=== PATIENT | female | born 1975 | race Caucasian/White ===

== ENCOUNTER 2018-07-24 15:59 | Outpatient (REF) | payer MEDICAID, SELFPAY ==
--- NOTE | 2018-07-24 15:10 | PAPFT_PTH ---
PATIENT: Fariba Weeks LOC: [facility] U#:[id number] AGE/SX: 42/F ROOM: RE07/24/[address]: Emily High NP : 1975 BED: DIS: 07/24/2018 SPEC #: [id number] RECD: 07/24/18 18:02 STATUS: LUIS FELIPE PITT #: [id number] JUDD: 07/24/18 15:[address]: Emily High NP DEPT: [facility] Cytology RECD BY: Hanna Warren ENTERED: 07/24/18 18:02 SP TYPE: PAPFT OTHR DR: Latonia Bowie Tissues: 1 - CX/ENDOCX FOR PAP SMEARS Procedures: PAP THIN PREP/UVM Screening HPV DNA PROBE Comments: [id number]
== END 2018-07-24 16:19 ==
LOC: LBN 15:59
PROVIDERS: PCP Registered Nurse; Visit Provider Nurse Practitioner Women's Health
DX: Z12.4 Encounter for screening for malignant neoplasm of cervix (principal); Z11.51 Encounter for screening for human papillomavirus (HPV)
CPT/HCPCS: 88142; 87624

== ENCOUNTER 2019-06-08 09:02 | Outpatient (CLI) | payer OTHER, SELFPAY ==
[2019-06-08 09:25] LABS: HCT 42.4 % (36.0-46.0); HGB 14.2 g/dL (12.0-15.5); Mean Corp. HGB Concentration 33.5 g/dL (32.0-36.0); Mean Corpuscular Hemoglobin 28.9 pg (27.0-33.0); Mean Corpuscular Volume 86.4 fL (80-95); Mean Platelet Volume 9.5 fL (8.0-11.0); Platelet Count 344 x1000/uL (130-400); RBC 4.91 m/cumm (4.00-5.20); RBC Distribution Width 13.9 % (11.7-14.6); White Blood Cell Count 7.42 k/cumm (4.4-10.8)
[2019-06-08 10:37] LABS: ALT 30 U/L (14-59); AST 17 U/L (15-37); Albumin 4.2 g/dL (3.4-5.0); Alkaline Phosphatase 98 U/L (46-116); BUN 11 mg/dL (7-18); Bilirubin, Total 0.3 mg/dL (0.2-1.0); CREATININE 0.95 mg/dL (0.55-1.02); Calcium 9.3 mg/dL (8.5-10.1); Chloride 105 mmol/L (98-107); FREE T4 1.16 ng/dL (0.76-1.46); Glucose 86 mg/dL (74-106); Potassium 4.3 mmol/L (3.5-5.1); Sodium 143 mmol/L (136-145); TSH 0.86 uIU/mL (0.36-3.74); Total Protein 7.3 g/dL (6.4-8.2)
[2019-06-08 10:54] LABS: Calculated LDL 206 mg/dL; Cholesterol 258 mg/dL (<200); HDL Cholesterol 38 mg/dL (40-60); Triglyceride 74 mg/dL (<150)
[2019-06-10 10:56] LABS: Prolactin 8.5 ng/mL (See Table)
== END 2019-06-08 09:22 ==
PROVIDERS: PCP Registered Nurse; Visit Provider Nurse Practitioner Psychiatric/Mental Health
DX: Z51.81 Encounter for therapeutic drug level monitoring (principal)
CPT/HCPCS: 36415; 80053; 80061; 85027; 84146; 84439; 84443

== ENCOUNTER 2020-06-24 03:08 | Outpatient (CLI) | payer OTHER, SELFPAY ==
[2020-06-24 07:25] LABS: HCT 41.8 % (36.0-46.0); HGB 13.7 g/dL (11.2-15.7); MCH 28.6 pg (27.0-33.0); MCHC 32.8 % (32.0-36.0); MCV 87.3 fL (80-95); MPV 10.1 fL (8.0-11.0); Platelet Count 332 10^3/uL (130-400); RBC 4.79 10^6/uL (3.93-5.22); RDW 14.3 % (11.7-14.6); RDW-SD 46.4 fL; WBC 7.33 10^3/uL (4.4-10.8)
[2020-06-24 07:41] LABS: Hemoglobin A1C 5.8 % (<5.7)
[2020-06-24 09:37] LABS: ALT 37 U/L (14-59); AST 24 U/L (15-37); Albumin 4.2 g/dL (3.4-5.0); Alkaline Phosphatase 96 U/L (46-116); BUN 15 mg/dL (7-18); Bilirubin, Total 0.4 mg/dL (0.2-1.0); CREATININE 1.13 mg/dL (0.55-1.02); Calcium 9.2 mg/dL (8.5-10.1); Calculated LDL 175 mg/dL (<100); Chloride 103 mmol/L (98-107); Cholesterol 235 mg/dL (<200); Estimated GFR 52.55 (mL/min/1.73m2); Glucose 103 mg/dL (74-106); HDL Cholesterol 38 mg/dL (40-60); Potassium 4.4 mmol/L (3.5-5.1); Sodium 138 mmol/L (136-145); TSH 1.02 uIU/mL (0.36-3.74); Total Protein 7.3 g/dL (6.4-8.2); Triglyceride 111 mg/dL (<150)
[2020-06-24 09:57] LABS: FREE T4 1.12 ng/dL (0.76-1.46)
== END 2020-06-24 03:28 ==
PROVIDERS: PCP Registered Nurse; Visit Provider Nurse Practitioner Psychiatric/Mental Health
DX: Z51.81 Encounter for therapeutic drug level monitoring (principal)
CPT/HCPCS: 36415; 80053; 80061; 85027; 83036; 84439; 84443

== ENCOUNTER 2021-01-20 15:52 | Outpatient (CLI) | payer OTHER, SELFPAY ==
--- NOTE | 2021-01-20 | DI.RAD_ITS ---
Exam(s) RF BARIUM SWALLOW EXAM: RF BARIUM SWALLOW CLINICAL HISTORY: GLOBUS SENSATION, R09.89, THROAT CLEARING, R68.89, DYSPHAGIA, R13.10 TECHNIQUE: 2D and realtime digital imaging was performed. CONTRAST MATERIAL: Oral barium Oral water soluble contrast was administered. COMPARISON: No exams were available for comparison FINDINGS: Esophagram performed with air contrast technique, standing and recumbent. There is mild disc space narrowing at C5-6 level. There are no large osteophytes. The swallowing mechanism is grossly intact. There is no penetration nor aspiration. No evidence of prominent hypertense upper esophageal sphincter and no evidence of Zenker's diverticulum. No fixed l esions in the esophagus nor abnormal mucosal pattern. GE junction appears unremarkable. No hiatal hernia. No stricture. No evidence of Schatzki ring. Were not able to elicit any significant GE reflux on today's study. IMPRESSION: No significant findings on this esophagram study. RADIATION DOSE DELIVERED: vito Sethi=96.5 mGy
[2021-01-20] MEDS: Simethicone/Sod Bicarb/Cit Ac, 4 gram PACKET 1 PACKET PO (15:28)
[2021-01-20] MEDS: Barium Sulfate 60% W/V 355 ML BTL PO (15:28)
== END 2021-01-20 16:12 ==
PROVIDERS: PCP Registered Nurse; Visit Provider Nurse Practitioner
DX: R09.89 Other specified symptoms and signs involving the circulatory and respiratory systems (principal); R68.89 Other general symptoms and signs; R13.10 Dysphagia, unspecified; R19.4 Change in bowel habit
CPT/HCPCS: 74221; J3490

== ENCOUNTER 2021-02-07 04:21 | Outpatient (CLI) | payer OTHER, SELFPAY ==
[2021-02-07 13:47] LABS: Hemoglobin A1C 5.6 % (<5.7)
[2021-02-07 16:17] LABS: Anion Gap 8.9 mmol/L (3-11); BUN 11 mg/dL (7-18); CO2 27.1 mmol/L (21.0-32.0); CREATININE 0.9 mg/dL (0.55-1.02); Calcium 8.7 mg/dL (8.5-10.1); Chloride 105 mmol/L (98-107); Glucose 76 mg/dL (74-106); Potassium 4.2 mmol/L (3.5-5.1); Sodium 141 mmol/L (136-145)
== END 2021-02-07 04:22 | disposition home or self-care (01) ==
LOC: LBO 04:21
PROVIDERS: Nurse Practitioner; PCP Registered Nurse; Visit Provider Registered Nurse
DX: R73.03 Prediabetes (principal); F33.0 Major depressive disorder, recurrent, mild; E78.5 Hyperlipidemia, unspecified
CPT/HCPCS: 36415; 80048; 83036

== ENCOUNTER 2021-05-24 02:49 | Outpatient (CLI) | payer OTHER, SELFPAY ==
[2021-05-24 23:31] LABS: COVID-19 RT-PCR UVMMC Result Negative (Negative)
== END 2021-05-24 02:50 | disposition home or self-care (01) ==
LOC: LBO 02:49
PROVIDERS: PCP Registered Nurse; Visit Provider Nurse Practitioner Family
DX: Z20.822 Contact with and (suspected) exposure to COVID-19 (principal)
CPT/HCPCS: U0003

== ENCOUNTER 2021-09-05 02:40 | Outpatient (CLI) | payer OTHER, SELFPAY ==
[2021-09-05 07:24] LABS: HCT 38.9 % (36.0-46.0); HGB 12.6 g/dL (11.2-15.7); MCHC 32.4 % (32.0-36.0); MCV 89.4 fL (80-95); MPV 9.7 fL (8.0-11.0); Platelet Count 286 10^3/uL (130-400); RBC 4.35 10^6/uL (3.93-5.22); RDW 13.9 % (11.7-14.6); RDW-SD 45.3 fL; WBC 8.04 10^3/uL (4.4-10.8)
[2021-09-05 07:52] LABS: Hemoglobin A1C 5.8 % (<5.7)
[2021-09-05 08:35] LABS: ALT 35 U/L (14-59); AST 26 U/L (15-37); Alkaline Phosphatase 88 U/L (46-116); Anion Gap 9.8 mmol/L (3-11); BUN 16 mg/dL (7-18); Bilirubin, Total 0.3 mg/dL (0.2-1.0); CO2 25.2 mmol/L (21.0-32.0); Calcium 8.6 mg/dL (8.5-10.1); Chloride 105 mmol/L (98-107); Estimated GFR 59.96 (mL/min/1.73m2); Glucose 110 mg/dL (74-106); Potassium 4.4 mmol/L (3.5-5.1); Sodium 140 mmol/L (136-145); TSH 0.97 uIU/mL (0.36-3.74)
[2021-09-05 08:49] LABS: Calculated LDL 175 mg/dL (<100); Cholesterol 234 mg/dL (<200); HDL Cholesterol 46 mg/dL (40-60); Triglyceride 66 mg/dL (<150)
[2021-09-05 17:48] LABS: T3,Free 4.1 pg/mL (2.8-5.3)
[2021-09-05 18:00] LABS: T3, Total 152 ng/dL (97-169)
[2021-09-07 15:23] LABS: 25-Hydroxy D Total 36 ng/mL; 25-Hydroxy D2 <4.0 ng/mL; 25-Hydroxy D3 36 ng/mL
== END 2021-09-05 02:41 | disposition home or self-care (01) ==
LOC: LBO 02:40
PROVIDERS: PCP Registered Nurse; Visit Provider Nurse Practitioner Psychiatric/Mental Health
DX: F32.9 Major depressive disorder, single episode, unspecified (principal); Z79.899 Other long term (current) drug therapy
CPT/HCPCS: 36415; 80053; 80061; 82306; 85027; 83036; 84443; 84480; 84481

== ENCOUNTER 2022-01-13 14:46 | Outpatient (REF) | payer OTHER, SELFPAY | END 2022-01-13 14:47 | disposition home or self-care (01) | LOC: LBN 14:46 | PROVIDERS: PCP Emergency Medicine; Visit Provider Nurse Practitioner Family | DX: R30.0 Dysuria (principal) | CPT/HCPCS: 87086 ==

== ENCOUNTER 2022-01-16 11:48 | Outpatient (REF) | payer OTHER, SELFPAY ==
[2022-01-17 14:15] LABS: Chlamydia Result Negative (Negative); GC Result Negative (Negative)
== END 2022-01-16 11:49 | disposition home or self-care (01) ==
LOC: LBN 11:48
PROVIDERS: PCP Emergency Medicine; Visit Provider Nurse Practitioner Women's Health
DX: Z11.3 Encounter for screening for infections with a predominantly sexual mode of transmission (principal)
CPT/HCPCS: 87491; 87591

== ENCOUNTER 2022-04-04 03:48 | Outpatient (CLI) | payer OTHER, SELFPAY ==
[2022-04-04 10:56] LABS: Hemoglobin A1C 5.9 % (<5.7)
[2022-04-04 11:27] LABS: Calculated LDL 192 mg/dL (<100); Cholesterol 262 mg/dL (<200); HDL Cholesterol 58 mg/dL (40-60); Triglyceride 62 mg/dL (<150)
== END 2022-04-04 03:49 | disposition home or self-care (01) ==
LOC: LBO 03:48
PROVIDERS: PCP Emergency Medicine; Visit Provider Physician Assistant
DX: R73.03 Prediabetes (principal); E78.5 Hyperlipidemia, unspecified
CPT/HCPCS: 36415; 80061; 83036

== ENCOUNTER 2022-05-19 11:35 | Emergency (ER) | payer OTHER, SELFPAY ==
--- NOTE | 2022-05-19 11:30 | DI.CT_ITS ---
Exam(s) CT ABDOMEN PELVIS W EXAM: CT ABDOMEN PELVIS W CLINICAL HISTORY: b/l flank and abd pain, urinary frequency TECHNIQUE: Imaging Protocol: Axial computed tomography images with coronal and sagittal reformatted images were created and reviewed CONTRAST MATERIAL: Intravenous: Omnipaque 350 Contrast volume:100 mL Oral: No COMPARISON: No exams were available for comparison FINDINGS: ABDOMEN: Lung Bases: Normal where visualized. Liver: Normal density. No measurable mass. Portal, Superior Mesenteric, and Splenic Veins: Unremarkable. Gallbladder and Biliary Tract: No radiodense calculus or dilation. Pancreas: Normal density, no abnormal calcifications or inflammatory process. Spleen: Normal. Adrenals: No masses seen. Kidneys: Normal size, contour and axis. No radiodense stones or obstructive uropathy. There is a tiny hypodensity in the left kidney. It is too small for further characterization. There does appear to be mild enhancement of the wall of the left renal collecting system and mild stranding around the ur eter. Abdominal Aorta: Abdominal portion non-dilated. Atherosclerosis. Bowel: No obstruction or bowel wall thickening. Appendix is unremarkable. Peritoneal Cavity: No ascites, collection or mesenteric inflammatory response. No free air. Lymph Nodes: Within normal limits. Bones: Within normal limits for the patient's age. Soft Tissues: There is a moderate size fat containing umbilical hernia. PELVIS: Bladder: Symmetric distention, no gross wall thickening. Reproductive Organs: There is an IUD which is in good position. Lymph Nodes: Within normal limits. Bones: Within normal limits for the patient's age. IMPRESSION: 1. No evidence of nephrolithiasis or hydronephrosis. 2. Mild wall enhancement of the left ureter with stranding around the ureter. This may represent a r ecently passed stone. An urinary tract infection cannot be excluded. 3. Findings were stat discussed with Dr. Jeronimo at 1:48 p.m. on 05/19/2022. RADIATION DOSE DELIVERED: 1,303.44mGy.cm Total DLP DATA REPOSITORY: All CT scans at this facility are submitted to the National Radiology Data Registry (NRDR) Dose Index Registry (DIR) with the [employer] (ACR). RADIATION OPTIMIZATION: All CT scans at this facility use at least one of these dose optimization te chniques: automated exposure control; mA and/or kV adjustment per patient size (includes targeted exa ms where dose is matched to clinical indication); or iterative reconstruction.
[2022-05-19 11:36] VITALS: BP 165/81; PULSE 113; RESP 16; TEMP 37; O2SAT 100
--- NOTE | 2022-05-19 11:40 | ED.GENADUL_ITS ---
Discharge Plan Disposition Patient Disposition: Home Condition: Stable Discharge Details Clinical Impression: Acute pyelonephritis Primary Care Provider: Albertina Morales ED Provider: Luz Maria Jeronimo Home Meds and New Rx's Prescriptions: New cephalexin 500 mg capsule 500 mg PO BID 10 Days Qty: 20 0RF Continued modafinil 200 mg tablet 200 mg PO DAILY Mirena 20 mcg/24 hours (5 yrs) 52 mg intrauterine device 1 device IY ONCE bupropion HCl [Wellbutrin XL] 300 MG tablet extended release 24 hr 300 mg PO DAILY lamotrigine [Lamictal] 100 MG tablet 100 mg PO DAILY aripiprazole [Abilify] 5 MG tablet 5 mg PO DAILY omeprazole 40 mg capsule,delayed release(DR/EC) 20 mg PO DAILY tolterodine [Detrol LA] 2 mg capsule,extended release 24hr 2 mg PO DAILY Qty: 90 3RF Ozempic 0.25 mg or 0.5 mg(2 mg/1.5 mL) pen injector 1 device SUBCUT QWEEK Discharge Instructions Instructions: Urinary Tract Infection in Women (ED), Kidney Infection (ED) Additional Instructions: Your lab tests and imaging today revealed that you likely have a urinary tract infection that may be progressing into a kidney infection. A prescription for antibiotics has been sent electronically to your pharmacy to take as directed until finished. Drink plenty of fluids and get plenty of rest. Alternate tylenol and motrin as needed and directed for pain. Follow-up with your primary care doctor in 1 week. Return to the emergency department with any worsening or new concerning symptoms. Discharge Data Discharge Physician: Luz Maria Jeronimo Medical Decision Making 1145 -- 46-year-old female presents with urinary frequency, urgency, lower abdominal and bilateral mid back pain for the past 2 days. Heart rate elevated to 113 on arrival. Her blood pressure is moderately hypertensive. She otherwise appears comfortable and nontoxic and is afebrile. Her abdomen is soft and minimally tender across lower quadrants. She has no CVA tenderness. Differential diagnosis includes UTI, pyelonephritis, kidney stone, interstitial cystitis. We will place an IV, bolus IV fluids, screening labs, urinalysis, CT abdomen and pelvis and give a dose of IV Toradol and reassess. 1430 --labs and imaging reviewed. Urinalysis appears likely consistent with UTI. CT imaging notes wall enhancement of the left ureter that may be consistent with a recently passed stone or UTI. History and presentation does not appear consistent likely with stone considering bilateral pain. We will treat with Keflex. She was given 1 dose here, bottle to go and a prescription sent electronically to her pharmacy. She was advised to increase fluids, rest, alternate Tylenol and Motrin. Advised to follow up with the primary care doctor for re-evaluation. Usual and customary return precautions given prior to discharge. Medical Records Medical records reviewed: Yes I reviewed the patient's medical records. Imaging Data Radiologic Study: Radiologist's impression: CT ABDOMEN ? PELVIS W CLINICAL HISTORY: ? b/l flank and abd pain, urinary frequency ? TECHNIQUE:? Imaging Protocol: Axial computed tomography images with coronal and sagittal reformatted images were created and reviewed CONTRAST MATERIAL:? Intravenous: Omnipaque 350 Contrast volume:100 mL Oral: No COMPARISON:? No exams were available for comparison FINDINGS: ABDOMEN: Lung Bases: Normal where visualized. Liver: Normal density. No measurable mass. Portal, Superior Mesenteric, and Splenic Veins: Unremarkable.? Gallbladder and Biliary Tract: No radiodense calculus or dilation. Pancreas: Normal density, no abnormal calcifications or inflammatory process. Spleen: Normal. Adrenals: No masses seen. Kidneys: Normal size, contour and axis. No radiodense stones or obstructive uropathy. There is a tiny hypodensity in the left kidney.? It is too small for further characterization.? There does appear to be mild enhancement of the wall of the left renal collecting system and mild stranding around the ureter. Abdominal Aorta: Abdominal portion non-dilated. Atherosclerosis. Bowel: No obstruction or bowel wall thickening. Appendix is unremarkable. Peritoneal Cavity: No ascites, collection or mesenteric inflammatory response.? No free air. Lymph Nodes: Within normal limits. Bones: Within normal limits for the patient's age.? Soft Tissues: There is a moderate size fat containing umbilical hernia.? PELVIS: Bladder: Symmetric distention, no gross wall thickening. Reproductive Organs: There is an IUD which is in good position.? Lymph Nodes: Within normal limits. Bones: Within normal limits for the patient's age.? IMPRESSION: 1. No evidence of nephrolithiasis or hydronephrosis. 2. Mild wall enhancement of the left ureter with stranding around the ureter.? This may represent a recently passed stone.? An urinary tract infection cannot be excluded.? Lab Data Lab results reviewed: Yes I reviewed the patient's lab results. Labs: 05/19/22 11:43 Urine - Reflex from Ua Urine Culture - Pending Laboratory Tests Range/Units 05/19/22 05/19/22 05/19/22 11:43 12:18 12:18 WBC (4.4-10.8) 10^3/uL 13.23 H RBC (3.93-5.22) 10^6/uL 4.85 Hgb (11.2-15.7) g/dL 14.2 Hct (36.0-46.0) % 41.7 MCV (80-95) fL 86 MCH (27.0-33.0) pg 29.3 MCHC (32.0-36.0) % 34.1 RDW (11.7-14.6) % 13.9 Plt Count (130-400) 10^3/uL 296 MPV (8.0-11.0) fL 9.7 Immature Gran % 0.5 Neutrophils % 70.9 Lymphocytes % 21.2 Monocytes % 5.6 Eosinophils % 1.3 Basophils % 0.5 Nucleated RBC % (0.0-0.3) % 0.0 Absolute Neutrophils (1.2-6.7) 10^3/uL 9.38 H Absolute Lymphocytes (1.2-3.4) 10^3/uL 2.80 Absolute Monocytes (0.1-0.8) 10^3/uL 0.74 Absolute Eosinophils (0.0-0.7) 10^3/uL 0.17 Absolute Basophils (0.0-0.2) 10^3/uL 0.07 Sodium (136-145) mmol/L 137 Potassium (3.5-5.1) mmol/L 3.7 Chloride (98-107) mmol/L 101 Carbon Dioxide (21.0-32.0) mmol/L 25.3 Anion Gap (3-11) mmol/L 10.7 BUN (7-18) mg/dL 9 Creatinine (0.55-1.02) mg/dL 1.0 Est GFR (CKD-EPI 2020) (mL/min/1.73m2) 70.80 Glucose (74-106) mg/dL 101 Calcium (8.5-10.1) mg/dL 9.6 Total Bilirubin (0.2-1.0) mg/dL 0.3 AST (15-37) U/L 27 ALT (14-59) U/L 31 Alkaline Phosphatase (46-116) U/L 117 H Total Protein (6.4-8.2) g/dL 8.1 Albumin (3.4-5.0) g/dL 4.2 Lipase (73-393) U/L 104 Urine Color (Yellow) Yellow Urine Clarity (Clear) Clear Urine pH (5-8) 6.0 Ur Specific [place] (1.005-1.025) 1.010 Urine Protein (Negative) mg/dL 30 H Urine Ketones (Negative) mg/dL Negative Urine Blood (Negative) Moderate H Urine Nitrite (Negative) Negative Urine Bilirubin (Negative) Negative Urine Urobilinogen (Up TO 0.2) EU/dL 0.2 Ur Leukocyte Esterase (Negative) Moderate H Urine RBC (0-2) HPF 3-5 H Urine WBC (0-5) HPF 10-20 H Ur Epithelial Cells (Negative) HPF Few Urine Crystals (Negative) HPF Negative Urine Bacteria (Negative) HPF Moderate Urine Casts (Negative) LPF Negative Urine Mucus (Negative) Negative Ur Culture Indicated? Yes Urine Glucose (Negative) mg/dL Negative HPI General Mode of arrival: ambulatory . Date/Time Provider Initiated Documentation: 05/19/22 11:39 . Limitations to Documentation: no limitations . Information obtained by: patient . HPI Narrative: Patient is a 46-year-old female with a history of obesity, hyperlipidemia, depression who presents for urinary frequency and urgency, lower abdominal pain and bilateral mid back pain for the past 2 days. Patient states her pain is intermittent and aching without aggravating or alleviating factors. Patient has not taken any medication for pain. She states she has been eating and drinking normally and denies any nausea, vomiting or diarrhea. She denies fever, dysuria, hematuria, vaginal discharge, genital lesions. Related Data Home Medications Medication Instructions Recorded Confirmed bupropion HCl 300 mg 24 hr tablet, 300 mg PO DAILY 08/27/15 05/19/22 extended release (Wellbutrin XL) lamotrigine 100 mg tablet 100 mg PO DAILY 07/06/17 05/19/22 (Lamictal) aripiprazole 5 mg tablet (Abilify) 5 mg PO DAILY 09/17/17 05/19/22 levonorgestrel 20 mcg/24 hours (8 1 device intrauterine ONCE 07/30/19 05/19/22 yrs) 52 mg intrauterine device (Mirena) modafinil 200 mg tablet 200 mg PO DAILY 07/30/19 05/19/22 omeprazole 40 mg capsule,delayed 20 mg PO DAILY 09/21/21 05/19/22 release tolterodine 2 mg capsule,extended 2 mg PO DAILY #90 caps 11/24/21 05/19/22 release 24 hr (Detrol LA) cephalexin 500 mg capsule 500 mg PO BID 10 days #20 caps 05/19/22 semaglutide 0.25 mg or 0.5 mg (2 1 device subcut QWEEK 05/19/22 05/19/22 mg/1.5 mL) subcutaneous pen injector (Ozempic) Previous Rx's Medication Instructions Recorded tolterodine 2 mg capsule,extended 2 mg PO DAILY #90 caps 11/24/21 release 24 hr (Detrol LA) cephalexin 500 mg capsule 500 mg PO BID 10 days #20 caps 05/19/22 Allergies Allergy/AdvReac Type Severity Reaction Status Date / Time No Known Allergies Allergy Verified 05/19/22 11:39 General Stated Complaint: FlankPain MANUELA: 3 Review of Systems All systems reviewed & are unremarkable except as noted in HPI and below Constitutional Constitutional: Reports as per HPI, Denies chills and Denies fever(s) Eyes Eyes: Denies blurry vision ENT Ears, Nose, Mouth, and Throat: Denies dizziness, Denies sore throat and Denies throat swelling Cardiovascular Cardiovascular: Denies chest pain and Denies dyspnea Respiratory Respiratory: Denies cough and Denies dyspnea Gastrointestinal Gastrointestinal: Denies abdominal pain, Denies diarrhea and Denies vomiting Genitourinary Genitourinary: Denies hematuria, Denies dysuria and Reports other (urinary frequency and urgency) Musculoskeletal Musculoskeletal: Denies back pain and Denies numbness Integumentary/Breasts Skin/Breast: Denies lesions and Denies rash Neurologic Neurologic: Denies dizziness, Denies localized weakness and Denies numbness Allergic/Immunologic Allergic/Immunologic: Denies throat swelling PFSH All Active Problems (Updated 05/19/22 @ 14:51 by Luz Maria Jeronimo DO) Acute pyelonephritis (Acute) Dysuria (Acute) Snoring (Acute) Gastroesophageal reflux disease (Chronic) Globus sensation (Acute) OAB (overactive bladder) (Acute) Fatigue (Acute) Depression (Chronic) Anxiety (Chronic) IUD surveillance (Acute 09/24/15) LOT #[id number] Medical History (Updated 05/19/22 @ 14:51 by Luz Maria Jeronimo DO) Chronic tension headache Contusion of chest Hyperlipidemia Insomnia Onset 03/28/2018 Lack of energy Lateral epicondylitis Recurrent major depressive episodes, mild Onset 12/25/2017 Snoring Surgical History (Updated 05/19/22 @ 12:51 by Luz Maria Jeronimo DO) No significant past surgical history Family History Maternal Aunt Breast cancer in female Mother No problems noted. 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 [employer] Pets and animals: Yes Pets and animals: cat(s), dog(s) and other Details: Rabbit Do you feel safe at home: Yes Do you feel safe in your relationship?: Yes Female Reproductive History Menstrual control method: progestin IUCD History History 2 Para 2 Hx # Term Pregnancies Multiple births Hx # Pregnancies Ectopic pregnancies AB induced Hx Number of Living Children AB spontaneous Exam Const General: cooperative, healthy appearing and no acute distress Orientation: alert, awake and oriented x3 HENMT Head: normal to inspection Face and sinus: normal facial exam Eyes General: appearance normal, both eyes and all related structures Pupils: PERRL EOM: EOM intact bilaterally Neck Neck: normal visual inspection and No submandibular swelling Lymphatic: no lymphadenopathy noted Chest Chest: normal inspection of the chest and no tenderness Resp Effort & Inspection: normal respiratory effort and able to speak in complete sentences Auscultation: clear to auscultation bilaterally Cardio Rate: tachycardic Rhythm: regular rhythm GI Inspection: normal to inspection and obesity Palpation: soft, not firm, not rigid and tender (minimal across lower abdomen) Auscultation: hypoactive bowel sounds Back/Spine/Pelvis Back: no CVA tenderness Thoracic/Lumbar Spine: thoracic and lumbar spine normal to inspection Skin General skin exam: no rashes or lesions noted Neuro General: patient alert, patient awake and patient oriented x3 Cognition: normal cognition Speech: speech normal Motor: muscle tone normal throughout Sensory Exam: no sensory deficits noted Extrem General: normal to inspection, full ROM, capillary refill normal, no calf tenderness bilaterally and no edema Psych Appearance: grossly normal Mental Status: mental status grossly normal Speech and Movement: speech and movement normal Affect: normal affect Course Vital Signs Vital signs: Vital Signs Temperature 98.6 F 05/19/22 11:36 Pulse 113 H 05/19/22 11:36 Respiratory Rate 16 05/19/22 11:36 Blood Pressure 165/81 H 05/19/22 11:36 Pulse Oximetry 100 05/19/22 11:36 Temperature 98.6 F 05/19/22 11:36 Temperature Source Skin 05/19/22 11:36 Pulse 113 H 05/19/22 11:36 Respiratory Rate 16 05/19/22 11:36 Respiratory Effort 05/19/22 11:38 Blood Pressure 165/81 H 05/19/22 11:36 Blood Pressure Position Sitting 05/19/22 11:36 Pulse Oximetry 100 05/19/22 11:36 Oxygen Delivery Method Room Air 05/19/22 11:36 Oxygen Flow Rate 0 05/19/22 11:36 Pain Level 2 05/19/22 11:36
[2022-05-19 11:56] LABS: Bilirubin Negative (Negative); Blood Moderate (Negative); Clarity Clear (Clear); Glucose Negative (Negative); Ketones Negative (Negative); Leukocyte Esterase Moderate (Negative); Nitrite Negative (Negative); Urobilinogen 0.2 EU/dL (Up TO 0.2)
[2022-05-19 12:07] LABS: Bacteria Moderate HPF (Negative); C & S Indicated? Yes; Casts Negative LPF (Negative); Crystals Negative HPF (Negative); Epithelial Cells Few HPF (Negative); Mucus Negative (Negative)
[2022-05-19] MEDS: Normal Saline 1,000 ML 1000 ML IV (12:21)
[2022-05-19 12:25] LABS: Abs Immature Grans 0.06 10^3/uL (0.0-0.06); Absolute Basophil Count 0.07 10^3/uL (0.0-0.2); Absolute Eosinophil Count 0.17 10^3/uL (0.0-0.7); Absolute Monocyte Count 0.74 10^3/uL (0.1-0.8); Basophils % 0.5; Eosinophils % 1.3; HCT 41.7 % (36.0-46.0); HGB 14.2 g/dL (11.2-15.7); Immature Grans % 0.5; Lymphocytes % 21.2; MCH 29.3 pg (27.0-33.0); MCHC 34.1 % (32.0-36.0); MCV 86 fL (80-95); MPV 9.7 fL (8.0-11.0); Monocytes % 5.6; Neutrophils % 70.9; Platelet Count 296 10^3/uL (130-400); RBC 4.85 10^6/uL (3.93-5.22); RDW 13.9 % (11.7-14.6); RDW-SD 43.4 fL; WBC 13.23 10^3/uL (4.4-10.8)
[2022-05-19 12:26] LABS: Absolute Neutrophil Count 9.38 10^3/uL (1.2-6.7)
[2022-05-19 12:42] LABS: ALT 31 U/L (14-59); AST 27 U/L (15-37); Albumin 4.2 g/dL (3.4-5.0); Alkaline Phosphatase 117 U/L (46-116); Anion Gap 10.7 mmol/L (3-11); BUN 9 mg/dL (7-18); Bilirubin, Total 0.3 mg/dL (0.2-1.0); CO2 25.3 mmol/L (21.0-32.0); Calcium 9.6 mg/dL (8.5-10.1); Chloride 101 mmol/L (98-107); Glucose 101 mg/dL (74-106); Lipase 104 U/L (73-393); Potassium 3.7 mmol/L (3.5-5.1); Sodium 137 mmol/L (136-145); Total Protein 8.1 g/dL (6.4-8.2)
[2022-05-19] MEDS: Omnipaque 350 MG/ML 100 ML BTL IJ (13:03)
[2022-05-19] MEDS: Normal Saline - Diluent 50 ML VIAL IJ (13:03)
[2022-05-19] MEDS: Ketorolac 30 MG/ML VIAL IVP (13:48)
[2022-05-19] MEDS: Cephalexin 500 MG CAP, 2 CAPS/BTL PO (15:09)
[2022-05-19] MEDS: Cephalexin 500 MG CAP PO (15:09)
--- NOTE | 2022-05-21 08:48 | NUR.NOTE ---
Nursing Note: Accessed patient chart to see if antibiotic was given for urine culture.
== END 2022-05-19 15:19 | disposition home or self-care (01) ==
PROVIDERS: Emergency Provider Physician Assistant; PCP Emergency Medicine
DX: N10 Acute pyelonephritis (principal); R00.0 Tachycardia, unspecified; I10 Essential (primary) hypertension
CPT/HCPCS: 36415; 80053; 81025; 83690; 87077; 96361; 96374; 99285; 74177; 81003; 81015; 85025; 87086; 87186; 99284; J1885; J3490

== ENCOUNTER 2022-07-24 02:38 | Outpatient (CLI) | payer OTHER, SELFPAY ==
[2022-07-24 12:27] LABS: Hemoglobin A1C 5.5 % (<5.7)
[2022-07-24 12:39] LABS: Calculated LDL 165 mg/dL (<100); Cholesterol 230 mg/dL (<200); HDL Cholesterol 45 mg/dL (40-60); Triglyceride 101 mg/dL (<150)
== END 2022-07-24 02:39 | disposition home or self-care (01) ==
LOC: LBO 02:39
PROVIDERS: PCP Emergency Medicine; Visit Provider Physician Assistant
DX: E78.5 Hyperlipidemia, unspecified (principal); R73.03 Prediabetes
CPT/HCPCS: 36415; 80061; 83036

== ENCOUNTER 2022-11-17 02:20 | Outpatient (CLI) | payer OTHER, SELFPAY ==
[2022-11-17 13:14] LABS: Hemoglobin A1C 5.3 % (<5.7)
[2022-11-17 13:36] LABS: Calculated LDL 181 mg/dL (<100); Cholesterol 247 mg/dL (<200); HDL Cholesterol 49 mg/dL (40-60); Triglyceride 88 mg/dL (<150)
== END 2022-11-17 02:21 | disposition home or self-care (01) ==
LOC: LBO 02:21
PROVIDERS: PCP Physician Assistant; Visit Provider Physician Assistant
DX: E78.5 Hyperlipidemia, unspecified (principal); R73.03 Prediabetes
CPT/HCPCS: 36415; 80061; 83036

== ENCOUNTER 2023-03-28 05:28 | Outpatient (CLI) | payer OTHER, SELFPAY ==
[2023-03-28 13:42] LABS: Hemoglobin A1C 5.4 % (<5.7)
[2023-03-28 14:12] LABS: Calculated LDL 162 mg/dL (<100); Cholesterol 237 mg/dL (<200); HDL Cholesterol 60 mg/dL (40-60); Triglyceride 78 mg/dL (<150)
== END 2023-03-28 05:29 | disposition home or self-care (01) ==
LOC: LBO 05:29
PROVIDERS: PCP Physician Assistant; Visit Provider Physician Assistant
DX: E78.5 Hyperlipidemia, unspecified (principal)
CPT/HCPCS: 36415; 80061; 83036

== ENCOUNTER → 2023-05-01 16:21 | Outpatient (CLI) | payer OTHER, SELFPAY ==
--- NOTE | 2023-05-01 | DI.RAD_ITS ---
Exam(s) RF BARIUM SWALLOW EXAM: RF BARIUM SWALLOW CLINICAL HISTORY: GLOBUS SENSATION, R09.A2,? CRICOPHARYNGEAL HYPERTROPHY TECHNIQUE: 2D and realtime digital imaging was performed. CONTRAST MATERIAL: Thick and thin barium and barium tablet were administered. COMPARISON: CR,RF RF BARIUM SWALLOW from 01/20/2021 FINDINGS: The PA and lateral chest films show normal heart size and clear lung herrera. The lateral carbon cleaner view of the neck shows mild degenerative disc changes at C4-5. Esophagus: The patient swallowed barium without difficulty. Noevidence for mucosal erosions. Nofold thickening. No mass is visible. Nostricture. No evidence of cricopharyngeal hypertrophy. Motility: There is a normal primary stripping wave. No tertiary contractions were noted. There is a small sliding hiatal hernia evident only when supine. Mild gastroesophageal reflux was observed during the exam. Stomach and duodenum are grossly normal. IMPRESSION: Small sliding hiatal hernia and mild gastroesophageal reflux. RADIATION DOSE DELIVERED: vito Sethi=17.5 mGy
[2023-05-01] MEDS: Barium Sulfate 98% W/W 140 ML BTL PO (10:55)
[2023-05-01] MEDS: Barium Sulfate 60% W/V 355 ML BTL PO (10:57)
== END ==
PROVIDERS: PCP Physician Assistant; Visit Provider Otolaryngology
DX: K44.9 Diaphragmatic hernia without obstruction or gangrene (principal); K21.9 Gastro-esophageal reflux disease without esophagitis
CPT/HCPCS: 74221; J3490

== ENCOUNTER → 2023-07-04 01:29 | Outpatient (CLI) | payer OTHER, SELFPAY ==
--- NOTE | 2023-07-04 14:30 | ST.MBS_ITS ---
Date of Service Date of service: 07/04/23 Time of Service: 14:30 Modified Barium Swallow Study Findings: Video fluoroscopic Swallowing Evaluation (VFSE) / Modified Barium Swallow Study (MBSS) Speech Language Pathology Report Patient referred for VFSE/MBSS from Dr. Lorenzo ([facility] Otolaryngology) given globus sensation and suspicion for cricopharyngeal pathology. HPI & Patient report of function: Patient is a 47 year old F with persistant globus sensation and throat clearing for several years. Workup and treatment previously has included multiple unremarkable EGD's, unsuccessful PPI trials, and a barium swallow study which Dr Lorenzo reviewed and questioned for slight cricopharyngeal hypertension. In a recent visit, Dr. Lorenzo also noted supraglottic squeeze on phonation indicating possible element of muscle tension. Patient reported complaint this date is feeling as if there is something sitting in her throat that needs to be cleared, frequent urge to throat clear, which does not resolve the sensation. Denies any odynophagia, pain with phonation, sensation of prandial pharyngeal stasis or prandial/post- prandial s/sx aspiration. 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 Appearance of UES during distension c/w CP bar (prominence) but this does not hinder transit of any materials through the pharyngeal-esophageal segment. Question of intermittent incomplete epiglottic inversion but difficult to visualize, and vallecular residue is only trace amount. Laryngeal motility remains strong. No aspiration occurred and only flash shallow penetration of thin liquids into laryngeal vestibule during the swallow without any residue. No notable or persistent stasis observed in the esophagus when surveyed briefly at end of study. A captured image of maximum CP prominence is shown below. Patient appears to be at low risk for potential aspiration PNA and/or pulmonary compromise and low risk for malnutrition, dehydration. Diet modification is not indicated; non-oral nutrition is not indicated. Swallow prognosis is excellent given: Positive prognostic factors: Age, Severity, Cognitive Status Negative prognostic factors: Surgical/anatomical factors RECOMMENDATIONS: Diet Texture Recommendation:? IDDSI LEVEL SOLIDS 7-Regular Solids LIQUIDS 0-Thin Liquids MEDICATIONS Whole with Thin Liquids or Other as tolerated Risk Management Strategies:? Behavioral reflux precautions, including upright position during + 90 mins after meals. Sleep with HOB inclined Consider eating smaller/more frequent meals & snacks to reduce reflux risk. Look up common reflux triggers to avoid/limit (e.g., alliums, caffeine, mint/menthol, acidic foods, chocolate) Increase daily hydration Limit food/drink 2-3 hours before lying down to sleep. PLAN: No further ROOFING APPRENTICE f/u at this time. ROOFING APPRENTICE providing initial results and recommendations especially as relates to reflux management, impact on sensation, etc. Provided education regarding potential ROOFING APPRENTICE role with muscle tension dysphonia, cough suppression techniques, vocal hygeine. If referring provider and patient discuss management options, goals of care and would like to send referral for voice therapy we would be happy to see her. ----- OBJECTIVE Oral-Motor and Peripheral Screen was unremarkable. Videofluoroscopic Swallow Evaluation (VFSE/MBSS) was conducted in the lateral projection by Speech-Language Pathologist, in collaboration with Radiologist, to evaluate oropharyngeal swallow function. Anatomic view under fluoroscopy: PO Barium Contrast Trials Oral barium water-soluble contrast was administered as follows: IDDSI Level 0 Varibar thin liquid (40% w/v) IDDSI Level 2 Varibar nectar thick/mildly thick liquid (40% w/v) (pharyngeal phase not visualized, only esophageal) IDDSI Level 4 Varibar pudding/pureed/extremely thick (40% w/v) IDDSI Level 7 Regular Solid: 1/2 best cracker coated in 3 mL Varibar pudding 13 mm barium tablet taken with Thin Liquids. MBSImP Component Scores: 3 COMPONENT Scale SCORE 1 Lip closure (0-4) 0 Resulted in no labial escape 2 Hold Position (0-3) 0 Maintained a cohesive bolus between tongue to palatal seal 3 Bolus Preparation (0-4) 0 Resulted in timely and efficient chewing and mashing 4 Bolus Transport (0-4) 0 Was with brisk tongue motion 5 Oral Residue (0-4) 1 Was a trace, lining oral structures 6 Swallow Initiation (0-4) 1 Occurred when the bolus head was in valleculae 7 Soft Palate Elevation (0-4) 0 Resulted in no bolus between soft palate and the pharyngeal wall 8 Laryngeal Elevation (0-3) 1 Was decreased with partial superior movement of thyroid cartilage/partial approximation of arytenoids to epiglottic petiole 9 Anterior Hyoid Motion (0-2) 0 Demonstrated complete anterior movement 10 Epiglottic Movement (0-2) 1 Resulted in partial inversion 11 Laryngeal Closure (0-2) 0 Was complete with no air or contrast in laryngeal vestibule 12 Pharyngeal Stripping Wave (0-2) 0 Was present and complete 13 Pharyngeal Contraction (0-3) NA Not observed (may only be judged in A/P view) 14 PES Opening (0-3) 1 Demonstrated partial distension/partial duration, with partial obstruction of flow 15 Tongue Base Retraction (0-4) 0 Allowed no contrast between the tongue base and posterior pharyngeal wall 16 Pharyngeal Residue (0-4) 1 Showed a trace within or on pharyngeal structures 17 Esophageal Clearance (0-4) NA Not observed (may only be judged in A/P view) Results: 3 COMPONENT Scale SCORE 1 Oral Score (0-18) 1 2 Pharyngeal Score (0-29) 3 3 Esophageal Score (0-4) 0 Penetration-Aspiration Scale: 3 COMPONENT Scale SCORE 1 Thin liquid (1-8) 2 Contrast entered the airway, remained above the vocal folds, and was ejected from the airway. 2 [place] thick (1-8) NA 3 Honey thick (1-8) NA 4 Pudding thick (1-8) 1 Contrast did not enter the airway 5 Cookie (1-8) 1 Contrast did not enter the airway Observations not captured in quantitative data: see impressions above for summary of non-quantitative data Trialed Compensatory Strategies & Outcome: n/a Thank you for allowing us to take part in this patient's care. Please feel free to contact the [facility] Speech Language Pathology Department with any questions/concerns. Coding CPT Codes MOTION FLUOROSCOPY/SWALLOW - [id number] ([id number])
--- NOTE | 2023-07-04 15:16 | DI.RAD_ITS ---
Exam(s) RF MODIFIED SPEECH BA SWALLOW TECHNIQUE: Modified barium swallow was performed in conjunction with speech pathology. CONTRAST MATERIAL: Oral barium Oral water soluble contrast was administered. COMPARISON: No exams were available for comparison FINDINGS: Fluoroscopy provided during swallowing mechanism study performed by the speech therapist. Please see that separate report. Somewhat hypertense upper esophageal sphincter demonstrated. No evidence of Zenker's diverticulum. There was no aspiration evident on this study. No evidence of hiatal hernia. Rapid transit of swallowed pill from the mouth to the stomach. No holdup. IMPRESSION: No evidence of aspiration or penetration. See separate this report. RADIATION DOSE DELIVERED: vito Sethi=15.0 mGy
[2023-07-04] MEDS: Barium Sulfate 700 MG TAB PO (15:44)
[2023-07-04] MEDS: Barium Sulfate Oral Paste 40% W/V 230 ML TUBE PO (15:45)
[2023-07-04] MEDS: Barium Sulfate 81% w/w for Oral Suspension 148 GM BTL PO (15:46)
[2023-07-04] MEDS: Barium Sulfate 40% W/V 240 ML BTL PO (15:48)
== END ==
PROVIDERS: PCP Physician Assistant; Visit Provider Otolaryngology
DX: R09.89 Other specified symptoms and signs involving the circulatory and respiratory systems (principal)
CPT/HCPCS: 92526; 92611; 74221

== ENCOUNTER 2023-10-17 08:44 | Outpatient (REF) | payer OTHER, SELFPAY ==
--- NOTE | 2023-10-17 08:30 | PAPFT_PTH ---
PATIENT: Fariba Weeks LOC: [facility] U#:[id number] AGE/SX: 48/F ROOM: RE10/17/[address]: Emily High NP : 1975 BED: DIS: 10/17/2023 SPEC #: [id number] RECD: 10/17/23 13:14 STATUS: KATELYNJeannette REQ #: [id number] JUDD: 10/17/23 08:[address]: Emily High NP DEPT: [facility] Cytology RECD BY: Hanna Warrne ENTERED: 10/17/23 13:15 SP TYPE: PAPFT OTHR DR: Albertina Morales MD Tissues: 1 - CX/ENDOCX FOR PAP SMEARS Procedures: PAP THIN PREP/UVM Screening HPV DNA PROBE Comments: [id number]
== END 2023-10-17 08:45 | disposition home or self-care (01) ==
LOC: LBN 08:44
PROVIDERS: PCP Physician Assistant; Visit Provider Nurse Practitioner Women's Health
DX: Z12.4 Encounter for screening for malignant neoplasm of cervix (principal); Z11.51 Encounter for screening for human papillomavirus (HPV); Z01.419 Encounter for gynecological examination (general) (routine) without abnormal findings
CPT/HCPCS: 88142; 87624

== ENCOUNTER 2023-12-20 02:51 | Outpatient (CLI) | payer OTHER, SELFPAY ==
[2023-12-20 13:06] LABS: Hemoglobin A1C 5.4 % (<5.7)
[2023-12-20 13:36] LABS: Calculated LDL 190 mg/dL (<100); Cholesterol 271 mg/dL (<200); HDL Cholesterol 61 mg/dL (40-60); Triglyceride 102 mg/dL (<150)
== END 2023-12-20 02:52 | disposition home or self-care (01) ==
LOC: LBO 02:51
PROVIDERS: PCP Physician Assistant; Visit Provider Physician Assistant
DX: R73.03 Prediabetes (principal); E78.5 Hyperlipidemia, unspecified
CPT/HCPCS: 36415; 80061; 83036

== ENCOUNTER 2024-01-07 02:20 | Inpatient (IN) | payer OTHER, SELFPAY ==
[2024-01-07] VITALS (36 sets, daily range): BP systolic 109–178; BP diastolic 49–128; PULSE 71–90; RESP 12–23; TEMP 35.9–37.1; O2SAT 95–100; BMI 35.2
--- NOTE | 2024-01-07 02:45 | DI.CT_ITS ---
Exam(s) CT ABDOMEN PELVIS W EXAM: CT ABDOMEN PELVIS W CLINICAL HISTORY: RUQ and epigastric abd pain, TTP, nausea TECHNIQUE: Imaging Protocol: Axial computed tomography images with coronal and sagittal reformatted images were created and reviewed. CONTRAST MATERIAL: Intravenous: Omnipaque 350 Contrast volume:100 mL Oral: No COMPARISON: CT CT ABDOMEN PELVIS W from 05/19/2022 FINDINGS: ABDOMEN: Lung Bases: Normal where visualized. Liver: Normal density. No measurable mass. Portal, Superior Mesenteric, and Splenic Veins: Unremarkable. Gallbladder and Biliary Tract: No definite stones are identified. There is mild inflammation seen in the soft tissues around the neck of the gallbladder. No biliary ductal dilatation is seen. Pancreas: Normal density, no abnormal calcifications or inflammatory process. Spleen: Normal. Adrenals: No masses seen. Kidneys: Normal size, contour and axis. No radiodense stones or obstructive uropathy. There is a stab le tiny hypodensity in the left kidney. It is too small for further characterization but likely refl ects a small cyst. No follow-up is recommended. Abdominal Aorta: Abdominal portion non-dilated. Minimal atherosclerotic calcification is present. Bowel: No obstruction or bowel wall thickening. There are few diverticula seen in the sigmoid colon, but no evidence of acute diverticulitis. No evidence of appendicitis. Peritoneal Cavity: No ascites, collection or mesenteric inflammatory response. No free air. Lymph Nodes: Within normal limits. Bones: Within normal limits for the patient's age. Soft Tissues: There is a small fat containing umbilical hernia. PELVIS: Bladder: Symmetric distention, no gross wall thickening. Reproductive Organs: There is an IUD in position. Lymph Nodes: Within normal limits. Bones: Within normal limits for the patient's age. IMPRESSION: 1. No definite gallstones are seen. Question of mild inflammation around the neck of the gallbladder . Gallbladder ultrasound should be considered for further evaluation. Inflammation/infection should be considered. 2. Otherwise unremarkable abdominal and pelvic CT scan. RADIATION DOSE DELIVERED: Total DLP DATA REPOSITORY: All CT scans at this facility are submitted to the National Radiology Data Registry (NRDR) Dose Index Registry (DIR) with the [employer] (ACR). RADIATION OPTIMIZATION: All CT scans at this facility use at least one of these dose optimization te chniques: automated exposure control; mA and/or kV adjustment per patient size (includes targeted exa ms where dose is matched to clinical indication); or iterative reconstruction.
--- NOTE | 2024-01-07 02:55 | ED.GENADUL_ITS ---
Discharge Plan Disposition Patient Disposition: Admit to [facility] Condition: Serious Discharge Details Chief Complaint: Abd Prob Clinical Impression: Acute calculous cholecystitis Primary Care Provider: Albertina Morales ED Provider: Fariba Gan Home Meds and New Rx's Prescriptions: No Action modafinil 200 mg tablet 200 mg PO DAILY Mirena 20 mcg/24 hours (5 yrs) 52 mg intrauterine device 1 device IY ONCE semaglutide 1 mg/dose (4 mg/3 mL) pen injector 1 mg subcut QWEEK tolterodine [Detrol LA] 2 mg capsule,extended release 24hr 2 mg PO DAILY Qty: 90 3RF bupropion HCl [Wellbutrin XL] 300 MG tablet extended release 24 hr 300 mg PO DAILY lamotrigine [Lamictal] 100 MG tablet 100 mg PO DAILY aripiprazole [Abilify] 5 MG tablet 5 mg PO DAILY omeprazole 40 mg capsule,delayed release(DR/EC) 20 mg PO DAILY HPI General Mode of arrival: ambulatory . Date/Time Provider Initiated Documentation: 01/07/24 02:21 . Limitations to Documentation: no limitations . Information obtained by: patient . HPI Narrative: 48yo F presenting for acute abdominal pain. Pain woke her from sleep this evening around 8:30pm, epigastric and radiating to both sides. Severe, constant, dull. Some intermittent nausea, no vomiting. No alleviating or aggravating factors. No chest pain or shortness of breath. No dysuria or hematuria. [place] fine when she went to bed yesterday evening. No fevers. Last BM yesterday, normal, formed, nonbloody, no melena. LMP currently. Otherwise in her usual state of health. Related Data Home Medications ?Medication ?Instructions ?Recorded ?Confirmed bupropion HCl 300 mg 24 hr tablet, 300 mg PO DAILY 08/27/15 01/07/24 extended release (Wellbutrin XL) lamotrigine 100 mg tablet 100 mg PO DAILY 07/06/17 01/07/24 (Lamictal) aripiprazole 5 mg tablet (Abilify) 5 mg PO DAILY 09/17/17 01/07/24 levonorgestrel 21 mcg/24 hr (up to 1 device intrauterine ONCE 07/30/19 01/07/24 8 years) 52 mg intrauterine device (Mirena) modafinil 200 mg tablet 200 mg PO DAILY 07/30/19 01/07/24 omeprazole 40 mg capsule,delayed 20 mg PO DAILY 09/21/21 01/07/24 release semaglutide 1 mg/dose (4 mg/3 mL) 1 mg subcut QWEEK 10/19/22 01/07/24 subcutaneous pen injector tolterodine 2 mg capsule,extended 2 mg PO DAILY #90 caps 10/30/23 01/07/24 release 24 hr (Detrol LA) Previous Rx's ?Medication ?Instructions ?Recorded tolterodine 2 mg capsule,extended 2 mg PO DAILY #90 caps 10/30/23 release 24 hr (Detrol LA) Allergies Allergy/AdvReac Type Severity Reaction Status Date / Time No Known Allergies Allergy Verified 01/07/24 02:27 General Stated Complaint: Abd Prob MANUELA: 3 Review of Systems Narrative: see HPI Exam Narrative Exam Narrative: General: Alert, well appearing, well nourished, in no acute distress. Head: Normocephalic, atraumatic Neck: Trachea midline, ?Neck supple. ENT: ?MMM.? No oropharygeal lesions or exudate. Cardiac: ?RRR, no murmurs appreciated Resp: No respiratory distress. CTAB. Abd: ?Soft, non-distended. TTP of epigastrium and RUQ. Voluntary guarding in RUQ. No rebound. Positive gan's. : ?No suprapubic tenderness. No CVA tenderness. Extremities: ?No deformities.? No peripheral edema. Neurologic: GCS 15. ? Moves all extremities freely against gravity Course Vital Signs Vital signs: Vital Signs Temperature 35.9 C L 01/07/24 02:24 Pulse 89 01/07/24 02:24 Respiratory Rate 18 01/07/24 02:24 Blood Pressure 156/96 H 01/07/24 02:24 Pulse Oximetry 98 01/07/24 02:24 Temperature 35.9 C L 01/07/24 02:24 Temperature Source Skin 01/07/24 02:24 Pulse 89 01/07/24 02:24 Respiratory Rate 18 01/07/24 02:24 Respiratory Effort Normal 01/07/24 02:26 Blood Pressure 156/96 H 01/07/24 02:24 Blood Pressure Position Sitting 01/07/24 02:24 Pulse Oximetry 98 01/07/24 02:24 Oxygen Delivery Method Room Air 01/07/24 02:24 Oxygen Flow Rate 0 01/07/24 02:24 Medical Decision Making 48yo F presenting for acute RUQ and epigastric abdominal pain for the past 6 hours. Vital signs reassuring on arrival. RUQ and epigastric tenderness on exam with + gan's concerning for cholelithiasis, acute cholecystitits. Less likely choledocolithiasis, pancreatitis, bowel obstruction. Not septic. Not concerning for cholangitits. -Tylenol, toradol, morphine, zofran for symptoms -Labs reviewed as below, CBC reassuring with no leukocytosis or anemia, CMP with normal LFTs, lactate mildly elevated at 2.4 (will give 1L IVFB), lipase normal (less likely pancreatitis), preg negative. -CT (unable to get US overnight) independently reviewed; distended gallbladder on my view, radiology read below read as acute cholecystitis with inflammation adjacent to the neck of the gallbladder, cholelithiasis at the junction of the neck of the gallbladder and cystic duct. Discussed with Dr. Padilla from [facility]; patient accepted to surgical service. Bridging orders placed as requested. Awaiting transfer to the floor. Imaging Data Radiologic Study: Imaging: CT Scan Radiologist's impression: IMPRESSION: 1. Acute cholecystitis: Gallbladder is distended. Thin axial images demonstrate mild inflammation adjacent to the neck of the gallbladder. Cholelithiasis at the junction of the neck of the gallbladder and cystic duct. 2. Collapsed/ruptured/involuted cyst remnant in the left ovary measuring 1.3 cm. Lab Data Lab results reviewed: Yes I reviewed the patient's lab results. Labs: Laboratory Tests Range/Units 01/07/24 02:46 WBC (4.4-10.8) 10^3/uL 10.50 RBC (3.93-5.22) 10^6/uL 4.66 Hgb (11.2-15.7) g/dL 13.8 Hct (36.0-46.0) % 41.0 MCV (80-95) fL 88 MCH (27.0-33.0) pg 29.6 MCHC (32.0-36.0) % 33.7 RDW (11.7-14.6) % 14.3 Plt Count (130-400) 10^3/uL MPV (8.0-11.0) fL Immature Gran % % 0.3 Neutrophils % % 70.3 Lymphocytes % % 23.4 Monocytes % % 3.9 Eosinophils % % 1.5 Basophils % % 0.6 Nucleated RBC % (0.0-0.3) % 0.0 Absolute Neutrophils (1.2-6.7) 10^3/uL 7.38 H Absolute Lymphocytes (1.2-3.4) 10^3/uL 2.46 Absolute Monocytes (0.1-0.8) 10^3/uL 0.41 Absolute Eosinophils (0.0-0.7) 10^3/uL 0.16 Absolute Basophils (0.0-0.2) 10^3/uL 0.06 RBC Morphology Normal VBG Lactate (0.6-1.4) mmol/L 2.4 H* Sodium (136-145) mmol/L 139 Potassium (3.5-5.1) mmol/L 3.9 Chloride (98-107) mmol/L 103 Carbon Dioxide (21.0-32.0) mmol/L 24.7 Anion Gap (3-11) mmol/L 11.3 H BUN (7-18) mg/dL 13 Creatinine (0.55-1.02) mg/dL 1.0 Est GFR (CKD-EPI 2020) (mL/min/1.73m2) 69.93 Glucose (74-106) mg/dL 132 H Calcium (8.5-10.1) mg/dL 8.8 Total Bilirubin (0.2-1.0) mg/dL 0.32 AST (15-37) U/L 22 ALT (14-59) U/L 29 Alkaline Phosphatase (46-116) U/L 99 Total Protein (6.4-8.2) g/dL 7.2 Albumin (3.4-5.0) g/dL 3.8 Lipase (16-77) U/L 45 Serum HCG, Qual Negative Quality:SDOH Health Related Social Needs: No Data to Display PFSH All Active Problems (Updated 01/07/24 @ 04:59 by Fariba Gan MD) Acute calculous cholecystitis (Acute) Cubital tunnel syndrome on left (Acute) Dysuria (Acute) Snoring (Acute) Gastroesophageal reflux disease (Chronic) Globus sensation (Acute) OAB (overactive bladder) (Acute) Fatigue (Acute) Depression (Chronic) Anxiety (Chronic) IUD surveillance (Acute 09/24/15) LOT #[id number] Medical History Melanocytic nevus Paresthesia of left upper extremity History of prediabetes Posterior rhinorrhea Obesity Hyperlipidemia Contusion of chest Snoring Lack of energy Lateral epicondylitis Chronic tension headache Insomnia Onset 03/28/2018 Recurrent major depressive episodes, mild Onset 12/25/2017 Surgical History No significant past surgical history Family History Maternal Aunt Breast cancer in female Father Diabetes Essential hypertension Parkinsons disease Hyperlipidemia Social History Smoking/Tobacco Use Status: Never Second Hand Exposure: No Smoking risk assessment performed?: Yes Alcohol Intake: current Alcohol Intake frequency: holidays/special occasions only Details: BEER 1-2 TIMES PER WEEK Drug use: Never Substance use type: does not use Household members: spouse and children 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
[2024-01-07 03:08] LABS: Lactate 2.4 mmol/L (0.6-1.4)
[2024-01-07] MEDS: MORPHine 4 MG/ML SYR IVP (03:19)
[2024-01-07] MEDS: ACETAMINOPHEN 1,000 MG/100 ML BTL 400 MG IVPB ×3 (03:19→18:29)
[2024-01-07] MEDS: Ondansetron 4 MG/2 ML VIAL IVP (03:20)
[2024-01-07] MEDS: Ketorolac 15 MG/ML VIAL IVP (03:20)
[2024-01-07] MEDS: Normal Saline 1,000 ML 1000 ML IV (03:20)
[2024-01-07 03:27] LABS: ALT 29 U/L (14-59); AST 22 U/L (15-37); Albumin 3.8 g/dL (3.4-5.0); Alkaline Phosphatase 99 U/L (46-116); Anion Gap 11.3 mmol/L (3-11); BUN 13 mg/dL (7-18); Bilirubin, Total 0.32 mg/dL (0.2-1.0); CO2 24.7 mmol/L (21.0-32.0); Chloride 103 mmol/L (98-107); Estimated GFR 69.93 (mL/min/1.73m2); Glucose 132 mg/dL (74-106); Lipase 45 U/L (16-77); Potassium 3.9 mmol/L (3.5-5.1); Sodium 139 mmol/L (136-145); Total Protein 7.2 g/dL (6.4-8.2)
[2024-01-07 03:30] LABS: Abs Immature Grans 0.03 10^3/uL (0.0-0.06); Absolute Basophil Count 0.06 10^3/uL (0.0-0.2); Absolute Eosinophil Count 0.16 10^3/uL (0.0-0.7); Absolute Lymphocyte Count 2.46 10^3/uL (1.2-3.4); Absolute Monocyte Count 0.41 10^3/uL (0.1-0.8); Absolute Neutrophil Count 7.38 10^3/uL (1.2-6.7); Basophils % 0.6 %; Eosinophils % 1.5 %; HGB 13.8 g/dL (11.2-15.7); Immature Grans % 0.3 %; Lymphocytes % 23.4 %; MCH 29.6 pg (27.0-33.0); MCHC 33.7 % (32.0-36.0); MCV 88 fL (80-95); Monocytes % 3.9 %; Neutrophils % 70.3 %; RBC 4.66 10^6/uL (3.93-5.22); RDW 14.3 % (11.7-14.6); RDW-SD 45.4 fL
[2024-01-07 03:31] LABS: HCG Qual (Serum) Negative
[2024-01-07 03:32] LABS: Calcium 8.8 mg/dL (8.5-10.1)
[2024-01-07 03:53] LABS: Diff Comment PLT Morph Reviewed; RBC Morphology Normal
[2024-01-07] MEDS: Omnipaque 350 MG/ML 100 ML BTL IJ (03:53)
[2024-01-07] MEDS: Normal Saline - Diluent 50 ML VIAL IV (03:58)
--- NOTE | 2024-01-07 04:21 | DI.VRAD_ITS ---
PROCEDURE INFORMATION: Exam: CT Abdomen And Pelvis With Contrast Exam date and time: 01/07/2024 3:49 AM Age: 48 years old Clinical indication: Abdominal pain; Epigastric; Patient HX: Ruq pain TECHNIQUE: Imaging protocol: Computed tomography of the abdomen and pelvis with contrast. Contrast material: OMNIPAQUE 350; Contrast volume: 100 ml; Contrast route: INTRAVENOUS (IV); COMPARISON: CT ABDOMEN PELVIS W 05/19/2022 1:02 PM FINDINGS: Liver: Hepatic steatosis. Gallbladder and biliary ducts: Acute cholecystitis: Gallbladder is distended. Thin axial images demonstrate mild inflammation adjacent to the neck of the gallbladder. Cholelithiasis at the junction of the neck of the gallbladder and cystic duct. No biliary ductal dilatation. Pancreas: Unremarkable. Spleen: Normal. Adrenal glands: Normal. No mass. Kidneys and ureters: Normal. No hydronephrosis. Stomach and bowel: Unremarkable. No bowel wall thickening or intestinal obstruction. Appendix: Normal appendix. Intraperitoneal space: Unremarkable. No pneumoperitoneum. No abscess. Vasculature: Unremarkable. Lymph nodes: Unremarkable. Urinary bladder: Unremarkable as visualized. Reproductive: IUD in place, appears adequately positioned. Collapsed/ruptured/involuted cyst remnant in the left ovary measuring 1.3 cm. Bones/joints: Unremarkable. No acute fracture. Soft tissues: Small umbilical hernia containing fat only. IMPRESSION: 1. Acute cholecystitis: Gallbladder is distended. Thin axial images demonstrate mild inflammation adjacent to the neck of the gallbladder. Cholelithiasis at the junction of the neck of the gallbladder and cystic duct. 2. Collapsed/ruptured/involuted cyst remnant in the left ovary measuring 1.3 cm. Dictated and Authenticated by: Angelito Dao MD. Ordering:AVILA Link MD
[2024-01-07] MEDS: cefTRIAXone 1 GM/50 ML BAG IVPB ×2 (05:08→09:08)
[2024-01-07] MEDS: metroNIDAZOLE 500 MG/100 ML BAG 100 MG IVPB (05:09)
--- NOTE | 2024-01-07 06:19 | W.PC.ACHO ---
Registration Status: Primary Language: Preferred Language: ED Information & Data Chief Complaint Abd Prob 01/07/24 02:56 Triage Note upper quadrant abd pain 01/07/24 02:24 thats been ongoing since 2029. States that the pain in constant and that she feels bloated. Woke her up out of her sleep. Denies SOB and CP. States that she still has a gallbladder. Intermittently nauseated Medical / Surgical History (Last Reviewed 10/17/23 @ 08:39 by Emily High NP) Melanocytic nevus Paresthesia of left upper extremity History of prediabetes Posterior rhinorrhea Obesity Hyperlipidemia Contusion of chest Snoring Lack of energy Lateral epicondylitis Chronic tension headache Insomnia Recurrent major depressive episodes, mild (Last Reviewed 10/17/23 @ 08:39 by Emily High NP) No significant past surgical history Most Recent Vital Signs Temperature 37.1 C 01/07/24 05:47 Temperature Source Temporal Artery Scan 01/07/24 05:47 Pulse 83 01/07/24 05:47 Respiratory Rate 16 01/07/24 05:47 Respiratory Effort Normal 01/07/24 02:26 Blood Pressure 128/85 01/07/24 05:47 Blood Pressure Position Sitting 01/07/24 02:24 Pulse Oximetry 100 01/07/24 05:47 Oxygen Delivery Method Room Air 01/07/24 05:47 Oxygen Flow Rate 0 01/07/24 05:47 Pain Level 3 01/07/24 05:47 Allergies No Known Allergies Allergy (Verified 01/07/24 02:27) Precautions Isolation Standard precaution 01/07/24 02:26 Active Medications Generic Name Dose Route Start Last Admin Trade Name Warren PRN Reason Stop Dose Admin Iohexol 100 ml 01/07/24 04:00 01/07/24 03:53 Omnipaque 350 Mg/Ml 100 Ml Btl IJ 02/06/24 23:59 100 ml DIRECTED CLEMENT Administration Sodium Chloride 50 ml 01/07/24 04:00 01/07/24 03:58 Normal Saline - Diluent 50 Ml Vial IV 50 ml .FOR DI USE CLEMENT Administration IV IV Catheter Type [Right Saline Lock Antecubital] IV Catheter Gauge [Right 18 Antecubital] Diet Orders Category Date Time Status Nothing Per Oral [DIET] Nutrition 01/07/24 Breakfast Active Diagnostics 01/07/24 01/07/24 Range/Units 06:09 02:46 WBC 10.50 (4.4-10.8) 10^3/uL RBC 4.66 (3.93-5.22) 10^6/uL Hgb 13.8 (11.2-15.7) g/dL Hct 41.0 (36.0-46.0) % MCV 88 (80-95) fL MCH 29.6 (27.0-33.0) pg MCHC 33.7 (32.0-36.0) % RDW 14.3 (11.7-14.6) % Plt Count (130-400) 10^3/uL MPV (8.0-11.0) fL Immature Gran % 0.3 % Neutrophils % 70.3 % Lymphocytes % 23.4 % Monocytes % 3.9 % Eosinophils % 1.5 % Basophils % 0.6 % Nucleated RBC % 0.0 (0.0-0.3) % Absolute Neutrophils 7.38 H (1.2-6.7) 10^3/uL Absolute Lymphocytes 2.46 (1.2-3.4) 10^3/uL Absolute Monocytes 0.41 (0.1-0.8) 10^3/uL Absolute Eosinophils 0.16 (0.0-0.7) 10^3/uL Absolute Basophils 0.06 (0.0-0.2) 10^3/uL RBC Morphology Normal VBG Lactate Pending 2.4 H* (0.6-1.4) mmol/L Sodium 139 (136-145) mmol/L Potassium 3.9 (3.5-5.1) mmol/L Chloride 103 (98-107) mmol/L Carbon Dioxide 24.7 (21.0-32.0) mmol/L Anion Gap 11.3 H (3-11) mmol/L BUN 13 (7-18) mg/dL Creatinine 1.0 (0.55-1.02) mg/dL Est GFR (CKD-EPI 2020) 69.93 (mL/min/1.73m2) Glucose 132 H (74-106) mg/dL Calcium 8.8 (8.5-10.1) mg/dL Total Bilirubin 0.32 (0.2-1.0) mg/dL AST 22 (15-37) U/L ALT 29 (14-59) U/L Alkaline Phosphatase 99 (46-116) U/L Total Protein 7.2 (6.4-8.2) g/dL Albumin 3.8 (3.4-5.0) g/dL Lipase 45 (16-77) U/L Serum HCG, Qual Negative Intake and Output - 24 Hour Total 01/07/24 02:20 thru 01/07/24 05:23 Intake Total 1250 Balance 1250 Weight 95.254 kg Intake: IV 1250 Falls Risk Assessment History of Falls No History 01/07/24 02:31 Contributing Factors No Factors 01/07/24 02:31 Ambulatory Aids Independent 01/07/24 02:31 Tubes/Lines None 01/07/24 02:31 Gait Evaluation No gait disturbance 01/07/24 02:31 Cognition No cognitive impairment 01/07/24 02:31 Fall Total Score 0 01/07/24 02:31 Level of Risk Standard/Low Risk 01/07/24 02:31 Problems (Last Reviewed 10/17/23 @ 08:39 by Emily High NP) Acute calculous cholecystitis (Acute) v v v v v v v v v Sending and/or Receiving Nurses: Please use comment section below to note any information pertinent to the patient hand-off not included above. Information / Comments: feeling bloated and nauseated. CT confirmed cholecystitis. Patient is afebrile. 18G RAC. NPO status.AxoX4. patient is up independently. Report received from:Santo Hodgson
[2024-01-07 06:30] LABS: Lactate 1.6 mmol/L (0.6-1.4)
[2024-01-07] MEDS: Normal Saline 1,000 ML 125 ML IV (07:39)
--- NOTE | 2024-01-07 08:53 | INITIAL_ITS ---
Date of service: 01/07/24 Time of Service: 08:54 Care Management Initial Assmt Initial Assessment Reason for Hospitalization: acute abdominal pain, cholecystitis Functional Status/Living Situation Patient Presentation: Mena was lying in bed, with eyes closed, when CM went to meet with her. She was very easily roused and readily engaged. Her and her Mom were in the room with her. Mena is currently NPO, awaiting surgery. She is told it will be sometime this afternoon, but she has not yet been evaluated by anaesthesia, so is not really sure of the time. Mena said she is really feeling pretty good at present. She was told she would be discharged tomorrow, and is already eagerly anticipating this. 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 Code Status Resuscitation Status Full Code Insurance Coverage/Financial Issues Insurance: [facility] Health Plans employee insurance Care Team Visit Care Team Role Provider Type Albertina Morales MD Primary Care Provider NON-[facility] STAFF PHYSICIAN Fariba Gan MD Emergency Provider [facility] STAFF PHYSICIAN Lissette Padilla, DO Admit Provider OSTEOPATHIC DOCTOR Attending Provider Discharge Potential Discharge Needs: PCP F/U Appt and Surgical F/U Appt Anticipated Barriers to Discharge: None Identified Patient/Family Education Needs: Review discharge instructions, discuss Ask Me Three Transportation: Private vehicle Plan: Anticipate that Mena will be discharged home with no new services. She will transport via private vehicle and will follow up with PCP, surgeon and plan of care. CM will continue to follow. PFSH All Active Problems Acute calculous cholecystitis (Acute) Cubital tunnel syndrome on left (Acute) Dysuria (Acute) Snoring (Acute) Gastroesophageal reflux disease (Chronic) Globus sensation (Acute) OAB (overactive bladder) (Acute) Fatigue (Acute) Depression (Chronic) Anxiety (Chronic) IUD surveillance (Acute 09/24/15) LOT [id number] Medical History Melanocytic nevus Paresthesia of left upper extremity History of prediabetes Posterior rhinorrhea Obesity Hyperlipidemia Contusion of chest Snoring Lack of energy Lateral epicondylitis Chronic tension headache Insomnia Onset 03/28/2018 Recurrent major depressive episodes, mild Onset 12/25/2017 Surgical History No significant past surgical history Family History Maternal Aunt Breast cancer in female Father Diabetes Essential hypertension Parkinsons disease Hyperlipidemia Social History Smoking/Tobacco Use Status: Never Second Hand Exposure: No Smoking risk assessment performed?: Yes Alcohol Intake: current Alcohol Intake frequency: holidays/special occasions only Details: BEER 1-2 TIMES PER WEEK Drug use: Never Substance use type: does not use Household members: spouse and children Housing: house 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 [employer] Pets and animals: Yes Pets and animals: cat(s), dog(s) and other Details: Rabbit Sexually active: Yes Current gender identity: female What type of physical activity do you participate in: none Seatbelt use: always Helmet use: Yes Do you feel safe at home: Yes Do you feel safe in your relationship?: Yes Female Reproductive History Menstrual control method: progestin IUCD History History 2 Para 2 Hx # Term Pregnancies Multiple births Hx # Pregnancies Ectopic pregnancies AB induced Hx Number of Living Children AB spontaneous SDOH(Care Management) Screening Will the Patient Participate in the Screening?: Yes Do you worry about having a steady place to live?: no Problems where you live: no known problems In the past 12 months, have you had to go without electric, gas, oil or water in your home?: no Have you or anyone in your house had to go without enough food to eat?: no Has lack of transportation kept you from medical appointments or from doing things needed for daily living?: no Has anyone in your support network made you feel unsafe for any reason?: no
[2024-01-07 09:05] LABS: Abs Immature Grans 0.03 10^3/uL (0.0-0.06); Absolute Basophil Count 0.05 10^3/uL (0.0-0.2); Absolute Lymphocyte Count 2.43 10^3/uL (1.2-3.4); Absolute Monocyte Count 0.62 10^3/uL (0.1-0.8); Absolute Neutrophil Count 5.56 10^3/uL (1.2-6.7); Basophils % 0.6 %; Eosinophils % 1.1 %; HCT 37.9 % (36.0-46.0); HGB 12.7 g/dL (11.2-15.7); Immature Grans % 0.3 %; Lymphocytes % 27.6 %; MCH 29.7 pg (27.0-33.0); MCHC 33.5 % (32.0-36.0); MCV 89 fL (80-95); MPV 9.2 fL (8.0-11.0); Monocytes % 7.1 %; Neutrophils % 63.3 %; Platelet Count 262 10^3/uL (130-400); RBC 4.27 10^6/uL (3.93-5.22); RDW 14.4 % (11.7-14.6); RDW-SD 46.5 fL; WBC 8.79 10^3/uL (4.4-10.8)
[2024-01-07] MEDS: Normal Saline Flush 10 ML SYR IVP ×2 (09:08→16:02)
[2024-01-07 09:29] LABS: ALT 153 U/L (14-59); AST 264 U/L (15-37); Albumin 3.4 g/dL (3.4-5.0); Alkaline Phosphatase 103 U/L (46-116); Anion Gap 10.7 mmol/L (3-11); BUN 9 mg/dL (7-18); Bilirubin, Total 0.52 mg/dL (0.2-1.0); CO2 25.3 mmol/L (21.0-32.0); CREATININE 0.9 mg/dL (0.55-1.02); Calcium 8.4 mg/dL (8.5-10.1); Chloride 107 mmol/L (98-107); Estimated GFR 79.35 (mL/min/1.73m2); Glucose 97 mg/dL (74-106); Lipase 39 U/L (16-77); Sodium 143 mmol/L (136-145); Total Protein 6.5 g/dL (6.4-8.2)
[2024-01-07] MEDS: Lactated Ringers 1,000 ML 125 ML IV (09:44)
--- NOTE | 2024-01-07 10:28 | W.SURGCON ---
Date of service: 01/07/24 Time of Service: 10:28 Assessment and Plan Assessment and plan (1) Acute calculous cholecystitis: Status: Acute Assessment and plan: due to the patient's persistent tenderness on exam and increasing LFTs the recommendation was made for laparoscopic cholecystectomy with possible IOC. The risks and the benefits were explained to the patient. Informed consent was obtained. History of Present Illness History of Present Illness Chief Complaint: abdominal pain Narrative: 48 year old female presented with signs and symptoms of acute cholecystitis. On presentation CT scan suggetive of cholelithiasis and acute cholecystitis. Blood work demonstrated WBC 10.5, AST/ALT 22/224, total bilirubin 0.32. Today, the patient feels better however she has RUQ abdominal pain on exam. Labs today demonstate elevated AST/ALT , wbc normal. Consults Consult date: 01/07/24 Review of Systems Gastrointestinal Gastrointestinal: Reports abdominal pain, Reports nausea and Reports vomiting (no vomiting) PFSH All Active Problems Acute calculous cholecystitis (Acute) Cubital tunnel syndrome on left (Acute) Dysuria (Acute) Snoring (Acute) Gastroesophageal reflux disease (Chronic) Globus sensation (Acute) OAB (overactive bladder) (Acute) Fatigue (Acute) Depression (Chronic) Anxiety (Chronic) IUD surveillance (Acute 09/24/15) LOT [id number] Medical History Melanocytic nevus Paresthesia of left upper extremity History of prediabetes Posterior rhinorrhea Obesity Hyperlipidemia Contusion of chest Snoring Lack of energy Lateral epicondylitis Chronic tension headache Insomnia Onset 03/28/2018 Recurrent major depressive episodes, mild Onset 12/25/2017 Surgical History No significant past surgical history Family History Maternal Aunt Breast cancer in female Father Diabetes Essential hypertension Parkinsons disease Hyperlipidemia Social History Smoking/Tobacco Use Status: Never Second Hand Exposure: No Smoking risk assessment performed?: Yes Alcohol Intake: current Alcohol Intake frequency: holidays/special occasions only Details: BEER 1-2 TIMES PER WEEK Drug use: Never Substance use type: does not use Household members: spouse and children Housing: house 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 Pets and animals: Yes Pets and animals: cat(s), dog(s) and other Details: Rabbit Sexually active: Yes Current gender identity: female What type of physical activity do you participate in: none Seatbelt use: always Helmet use: Yes Do you feel safe at home: Yes Do you feel safe in your relationship?: Yes Female Reproductive History Menstrual control method: progestin IUCD History History 2 Para 2 Hx # Term Pregnancies Multiple births Hx # Pregnancies Ectopic pregnancies AB induced Hx Number of Living Children AB spontaneous Exam GI Inspection: normal to inspection and obesity Palpation: soft and tender Results Last Vital Signs Temp 98.2 F 01/07/24 07:35 Pulse 82 01/07/24 07:35 Resp 17 01/07/24 07:35 BP 116/49 L 01/07/24 07:35 Pulse Ox 99 01/07/24 07:35 Labs 01/07/24 08:55 01/07/24 08:55 Labs: Laboratory Results - last 24 hr 01/07/24 01/07/24 01/07/24 02:46 05:36 08:55 WBC 10.50 8.79 RBC 4.66 4.27 Hgb 13.8 12.7 Hct 41.0 37.9 MCV 88 89 MCH 29.6 29.7 MCHC 33.7 33.5 RDW 14.3 14.4 Plt Count 262 MPV 9.2 Immature Gran % 0.3 0.3 Neutrophils % 70.3 63.3 Lymphocytes % 23.4 27.6 Monocytes % 3.9 7.1 Eosinophils % 1.5 1.1 Basophils % 0.6 0.6 Nucleated RBC % 0.0 0.0 Absolute Neutrophils 7.38 H 5.56 Absolute Lymphocytes 2.46 2.43 Absolute Monocytes 0.41 0.62 Absolute Eosinophils 0.16 0.10 Absolute Basophils 0.06 0.05 RBC Morphology Normal VBG Lactate 2.4 H* 1.6 H Sodium 139 143 Potassium 3.9 4.0 Chloride 103 107 Carbon Dioxide 24.7 25.3 Anion Gap 11.3 H 10.7 BUN 13 9 Creatinine 1.0 0.9 Est GFR (CKD-EPI 2020) 69.93 79.35 Glucose 132 H 97 Calcium 8.8 8.4 L Total Bilirubin 0.32 0.52 AST 22 264 H ALT 29 153 H Alkaline Phosphatase 99 103 Total Protein 7.2 6.5 Albumin 3.8 3.4 Lipase 45 39 Serum HCG, Qual Negative Imaging CT scan - pelvis: report reviewed and image reviewed
--- NOTE | 2024-01-07 12:03 | ANES.PREOP_ITS ---
General Info Date of Service Date Performed: 01/07/24 Height: 5 ft 6 in Weight: 98.883 kg Body Mass Index (BMI): 35.2 Surgical Procedure: Operation Date: 01/07/24 11:10 Proposed Procedure Side Surgeon p Cholecystectomy Laparoscopic Anu Hatch, Meds Allergies and Home Medications Allergies Allergy/AdvReac Type Severity Reaction Status Date / Time No Known Allergies Allergy Verified 01/07/24 02:27 Home Medication ?Medication ?Instructions ?Recorded bupropion HCl 300 mg 24 hr tablet, 300 mg PO DAILY 08/27/15 extended release (Wellbutrin XL) lamotrigine 100 mg tablet 100 mg PO DAILY 07/06/17 (Lamictal) aripiprazole 5 mg tablet (Abilify) 5 mg PO DAILY 09/17/17 levonorgestrel 21 mcg/24 hr (up to 1 device intrauterine ONCE 07/30/19 8 years) 52 mg intrauterine device (Mirena) modafinil 200 mg tablet 200 mg PO DAILY 07/30/19 omeprazole 40 mg capsule,delayed 20 mg PO DAILY 09/21/21 release semaglutide 1 mg/dose (4 mg/3 mL) 1 mg subcut QWEEK 10/19/22 subcutaneous pen injector tolterodine 2 mg capsule,extended 2 mg PO DAILY #90 caps 10/30/23 release 24 hr (Detrol LA) Current Visit Medications: Current Medications Generic Name Dose Route Start Last Admin Trade Name Freq PRN Reason Stop Dose Admin Ringer's Solution 1,000 mls @ 125 mls/hr 01/07/24 08:30 01/07/24 09:44 IV 125 mls/hr INFUSION CLEMENT Administration Acetaminophen 1,000 mg in 100 mls @ 400 mls/hr 01/07/24 08:00 01/07/24 10:03 Ofirmev IVPB Infused Q6H CLEMENT Infusion Metronidazole 500 mg in 100 mls @ 100 mls/hr 01/07/24 14:00 Flagyl IVPB Q8H CLEMENT Ceftriaxone Sodium/Dextrose 2 gm in 50 mls @ 100 mls/hr 01/08/24 08:00 Rocephin IVPB Q24H CLEMENT Cefazolin Sodium 1,500 mg/ 100 mls @ 200 mls/hr 01/07/24 10:27 Sodium Chloride IVPB PREOP CLEMENT IV Miscellaneous Supplies 1 each 01/07/24 08:30 Iv Access IV DIRECTED CLEMENT Morphine Sulfate 2 mg 01/07/24 08:21 Morphine 2 Mg/Ml Syr IVP Q1H PRN PRN Ondansetron HCl 4 mg 01/07/24 08:21 Ondansetron 4 Mg/2 Ml Vial IVP Q4H PRN PRN Sodium Chloride 0 ml 01/07/24 08:21 Normal Saline Flush 10 Ml Syr IVP PRN PRN Sodium Chloride 0 ml 01/07/24 08:30 01/07/24 09:08 Normal Saline Flush 10 Ml Syr IVP 10 ml BID CLEMENT Administration Sodium Chloride 0 ml 01/07/24 08:21 Normal Saline 10 Ml Vial IJ DIRECTED PRN PFSH Active Problems Active Problems: Problem Status Onset Code Acute calculous cholecystitis Acute K80.00 Cubital tunnel syndrome on left Acute G56.22 Dysuria Acute R30.0 Snoring Acute R06.83 Gastroesophageal reflux disease Chronic K21.9 Globus sensation Acute R09.89 OAB (overactive bladder) Acute N32.81 Fatigue Acute R53.83 Depression Chronic F32.9 Anxiety Chronic F41.9 IUD surveillance Acute 09/24/15 Z30.431 Medical History Medical History Melanocytic nevus Paresthesia of left upper extremity History of prediabetes Posterior rhinorrhea Obesity Hyperlipidemia Contusion of chest Snoring Lack of energy Lateral epicondylitis Chronic tension headache Insomnia Onset 03/28/2018 Recurrent major depressive episodes, mild Onset 12/25/2017 Surgical History Surgical History No significant past surgical history Tobacco Smoking/Tobacco Use Status: Never Passive smoking exposure: No Second hand exposure: No Alcohol Alcohol Intake: current Alcohol intake frequency: holidays/special occasions only Details: BEER 1-2 TIMES PER WEEK Substance Use Substance use: Never Substance use type: does not use Prental History History 2 2 Para 2 Hx # Term Pregnancies Multiple births Hx # Pregnancies Ectopic pregnancies AB induced Hx Number of Living Children AB spontaneous Vital Signs and Lab Results Vital Signs Most Recent Vital Signs in EMR: Most Recent Vital Signs Temp Pulse Resp BP Pulse Ox 36.6 C 74 16 111/63 97 01/07/24 10:49 01/07/24 10:49 01/07/24 10:49 01/07/24 10:49 01/07/24 10:49 Lab Results 01/07/24 08:55 01/07/24 08:55 Blood Type / Crossmatch: 2 No Data to Display Complete Blood Count: 2 White Blood Count 8.79 10^3/uL (4.4-10.8) 01/07/24 08:55 Red Blood Count 4.27 10^6/uL (3.93-5.22) 01/07/24 08:55 Hemoglobin 12.7 g/dL (11.2-15.7) 01/07/24 08:55 Hematocrit 37.9 % (36.0-46.0) 01/07/24 08:55 Platelet Count 262 10^3/uL (130-400) 01/07/24 08:55 Venous Blood Lactate 1.6 mmol/L (0.6-1.4) H 01/07/24 05:36 Complete Metabolic Panel: 2 Sodium 143 mmol/L (136-145) 01/07/24 08:55 Potassium 4.0 mmol/L (3.5-5.1) 01/07/24 08:55 Chloride 107 mmol/L (98-107) 01/07/24 08:55 Carbon Dioxide 25.3 mmol/L (21.0-32.0) 01/07/24 08:55 BUN 9 mg/dL (7-18) 01/07/24 08:55 Creatinine 0.9 mg/dL (0.55-1.02) 01/07/24 08:55 Est GFR (CKD-EPI 2020) 79.35 (mL/min/1.73m2) 01/07/24 08:55 Calcium 8.4 mg/dL (8.5-10.1) L 01/07/24 08:55 Albumin 3.4 g/dL (3.4-5.0) 01/07/24 08:55 Glucose 97 mg/dL (74-106) 01/07/24 08:55 Hemoglobin A1c 5.4 % (<5.7) 12/20/23 12:32 Liver Function Panel: 2 Alanine Aminotransferase (ALT/SGPT) 153 U/L (14-59) H 01/07/24 08:55 Aspartate Amino Transf (AST/SGOT) 264 U/L (15-37) H 01/07/24 08 :55 Coagulation Panel: 2 No Data to Display Cardiac Panel: 2 No Data to Display Arterial Blood Gas: 2 No Data to Display Venous Blood Gas: 2 No Data to Display Pancreas Panel: 2 Lipase 39 U/L (16-77) 01/07/24 08:55 Thyroid Panel: 2 No Data to Display Infectious Disease: 2 No Data to Display Blood Cultures: 2 No Data to Display Toxicology Panel: 2 No Data to Display Panel: 2 Serum HCG, Qualitative Negative 01/07/24 02:46 Anesthesia Assessment and Plan Anesthesia History Personal History: No History of Anesthesia Complications Family History: No Family History of Anesthesia Complications Exercise Tolerance Exercise Tolerance: Metabolic Equivalents>4 Pertinent Negatives Pertinent Negatives: No Symptoms of GERD, No Major Cardiovascular Symptoms or Complaints, No Major Pulmonary Symptoms or Complaints and No History of CVA/TIA Cardiac & Pulmonary Exam Cardiac Exam: Normal S1/S2 Heart Sounds Pulmonary Exam: Clear Bilateral Breath Sounds Implantable Cardiac Device Does patient have a Pacemaker or an ICD?: No Airway Exam Known Difficult Airway: No Mallampati Class: 1 Mouth Opening: Normal (> 3cm) Thyromental Distance: Greater than 3 cm Neck Range of Motion: Full ROM Neck Circumference: Normal Teeth Condition: Normal Dentition ASA Classification ASA Score: ASA 2 Emergency Case?: No NPO Status NPO Status: NPO Clears >2 hours, Solids >8 hours Status Status: Negative HCG Anesthesia Plan Resuscitation Status: Full Code Anesthesia Technique: General Anesthesia Airway Planned: Endotracheal Tube Monitors Used: Standard Monitors
[2024-01-07] MEDS: ceFAZolin 2 GM/50 ML BAG 100 GM (13:14)
[2024-01-07] MEDS: Bupivacaine 0.25% Pres-Free 30 ML VIAL (13:38)
--- NOTE | 2024-01-07 14:10 | GB_PTH ---
PATIENT: Fariba Weeks LOC: U#:[id number] AGE/SX: 48/F ROOM: 207 RE01/07/[address]: Lissette Padilla : 1975 BED: A DIS: 01/08/2024 SPEC #: [id number] RECD: 01/07/24 18:13 STATUS: LUIS FELIPE REQ #: [id number] JUDD: 01/07/24 14:[address]: Lissette Padilla DEPT: Surgical Specimen RECD BY: Hnana Warren ENTERED: 01/07/24 18:14 SP TYPE: GB OTHR DR: Albertina Morales MD Tissues: 1 - GALLBLADDER Procedures: GROSS AND MICRO LEVEL 3 Comments: [id number]
[2024-01-07] MEDS: Cellulose,Oxidized 2X3 PKT 1 EACH MC (14:20)
[2024-01-07] MEDS: Cellulose,Oxidized 4X8 1 PACKET MC (14:20)
[2024-01-07] MEDS: fentaNYL 100 MCG/2 ML VIAL IVP ×2 (15:13→15:25)
--- NOTE | 2024-01-07 15:30 | W.PM.OP ---
Date of service: 01/07/24 Time of Service: 15:44 Operative Note Operative Note DATE OF PROCEDURE: 01/07/24 PRE-OP DIAGNOSIS: Acute cholecystitis POST-OP DIAGNOSIS: same PROCEDURE: Laparoscopic cholecystectomy with needle decompression of the gallbladder SURGEON: Anu Hatch WELDING PANTOGRAPH OPERATOR: Mc Nunn ANESTHESIA TYPE: Local By Surgeon and General LMA/ETT Refer to Anesthesia Record ESTIMATED BLOOD LOSS: 50 PATHOLOGY: other (Gallbladder) COMPLICATIONS: None Patient was transported to: PACU Patient's condition: stable Findings: Patient is a 48-year-old female admitted overnight through the emergency department for signs and symptoms of acute cholecystitis. This morning on physical examination the patient's pain improved however on physical examination the patient still had persistent right upper quadrant tenderness. Today's lab work demonstrated elevation of AST and ALT. The recommendation was made for laparoscopic cholecystectomy with possible open conversion. The risk and the benefits of the procedure were explained to the patient. Informed consent was obtained and placed on the chart. Procedure Description: The patient was brought to the operating room where she was placed on the operating table in supine position. After adequate general endotracheal anesthesia was administered by the department of anesthesia preoperative antibiotics were administered. The abdomen was prepped and draped in standard sterile fashion. A timeout was performed to confirm the site of surgery. Using a #15 blade scalpel an infraumbilical incision was made. Mini laparotomy technique was used to gain entry into the peritoneal cavity. The abdomen was insufflated to a pressure of 12 to 15 mmHg using CO2 gas. A 10 mm 0 degree laparoscope was inserted into the abdomen. Upon primary survey of the abdomen there is no apparent injury from trocar insertion. Under direct visualization a 12 mm trocar was placed in the subxiphoid region. two additional 5 mm trocars were placed. One 5 mm trocar was placed in the midclavicular line. The other was placed in the mid axillary line. The patient was then repositioned in reverse Trendelenburg with the right side up. Attention was then turned to the right upper quadrant of the abdomen. Blunt graspers were introduced. Gallbladder was taut and distended making it difficult to grasp. The gallbladder was needle decompressed. Approximately 30 cc of dark bile was aspirated. The fundus of the gallbladder was grasped with a blunt grasper and retracted cephalad. Peritoneal attachments were taken off the surface of the gallbladder. The infundibulum of the gallbladder was grasped and retracted laterally. [place] dissector was then used to take down the peritoneal attachments. The cystic duct and the cystic artery were dissected with the [place] dissector.. [place] of [place] was visualized. The cystic artery was anterior. It was further skeletonized. Three 5 mm endoclips were placed on it approximately and one clip was placed distally. The cystic artery was divided using EndoShears. The cystic duct was then further skeletonized. Three endoclips were placed on it proximally and one distally. Cystic duct was divided using EndoShears. Additional peritoneal attachments were taken down to clearly visualize the base of the gallbladder. Gallbladder was dissected off of its base within the gallbladder fossa using Bovie electrocautery. Hemostasis was checked and achieved during dissection. The gallbladder was then placed in the Endo Catch bag and retrieved from the peritoneal cavity. Attention was then directed to the gallbladder fossa. The right upper quadrant was irrigated and excess irrigation was suctioned. There was no significant bleeding visualized however there seem to be some oozing from previously taken down peritoneal attachments. The clips on the cystic duct remnant and the cystic artery remnant was visualized. There was no oozing of bile or any bleeding visualized. Two pieces of Surgicel were placed in the gallbladder fossa. All trocars were removed under direct visualization. There is no bleeding from the trocar sites. The abdomen was then completely desufflated. The fascia of the trocar sites greater than 5 mm was reapproximated using 0 Vicryl with [id number] stitches. The skin and subcutaneous tissue were anesthetized with local anesthetic. The skin edges were reapproximated using 4-0 Vicryl with a running subcuticular stitch. Skin glue was applied. Sterile dressings were applied. The patient was taken to PACU in good condition. At the end of the procedure the needle, sponge instrument counts were all correct.
--- NOTE | 2024-01-07 15:50 | W.ANESPOSTOP ---
Postoperative Evaluation Date, Time and Location Date Performed: 01/07/24 Time Performed: 15:51 Patient Location: PACU Vital Signs Most Recent Imported Vital Signs: Most Recent Vital Signs Temp Pulse Resp BP Pulse Ox 36.8 C 78 16 134/70 97 01/07/24 15:25 01/07/24 15:40 01/07/24 15:40 01/07/24 15:40 01/07/24 15:35 Pain Score Most Recent Pain Score: Most Recent Pain Score Pain Level 5 01/07/24 15:25 Assessment Mental Status: Awake (Alert & Oriented to Patient Baseline) Airway and Respiratory Function: Patent airway with normal (patient baseline) respiratory exam Cardiovascular Function: Hemodynamically Stable Hydration Status: Adequately Hydrated Nausea & Vomiting: No Nausea or Vomiting Pain: Pain is tolerable per patient Peripheral Nerve Block: Patient did not receive a nerve block
[2024-01-07] MEDS: Ibuprofen 600 MG TAB PO (16:01)
[2024-01-07] MEDS: HYDROmorphone 2 MG/ML SYR 1 MG IVP (16:09)
[2024-01-07] MEDS: Lactated Ringers 1,000 ML 75 ML IV (16:11)
[2024-01-08] MEDS: Ibuprofen 600 MG TAB PO ×2 (01:02→08:05)
[2024-01-08 01:06] VITALS: BP 116/56; PULSE 80; RESP 12; TEMP 36.7; O2SAT 96
[2024-01-08] MEDS: ACETAMINOPHEN 1,000 MG/100 ML BTL 400 MG IVPB ×2 (02:30→08:04)
[2024-01-08] MEDS: Lactated Ringers 1,000 ML 75 ML IV (05:14)
[2024-01-08 07:00] LABS: HCT 39.5 % (36.0-46.0); MCHC 32.9 % (32.0-36.0); MCV 91 fL (80-95); MPV 9.5 fL (8.0-11.0); Platelet Count 270 10^3/uL (130-400); RBC 4.34 10^6/uL (3.93-5.22); RDW 14.7 % (11.7-14.6); RDW-SD 49.3 fL; WBC 9.21 10^3/uL (4.4-10.8)
[2024-01-08 07:24] LABS: ALT 107 U/L (14-59); AST 56 U/L (15-37); Albumin 3.1 g/dL (3.4-5.0); Alkaline Phosphatase 98 U/L (46-116); Anion Gap 9.5 mmol/L (3-11); BUN 6 mg/dL (7-18); Bilirubin, Total 0.34 mg/dL (0.2-1.0); CO2 26.5 mmol/L (21.0-32.0); CREATININE 0.9 mg/dL (0.55-1.02); Calcium 8.3 mg/dL (8.5-10.1); Chloride 105 mmol/L (98-107); Estimated GFR 79.35 (mL/min/1.73m2); Glucose 135 mg/dL (74-106); Potassium 3.6 mmol/L (3.5-5.1); Sodium 141 mmol/L (136-145); Total Protein 6.3 g/dL (6.4-8.2)
--- NOTE | 2024-01-08 07:53 | DSE_ITS ---
Date of service: 01/08/24 Time of Service: 11:00 DS: Diagnosis Discharge Diagnosis (1) Acute calculous cholecystitis: Status: Resolved Discharge Plan Disposition Patient Disposition: Home Condition: Good Discharge Details Reason For Visit: Acute Cholecystitis Admit Date/Time: 01/07/24 04:55 Admit Provider: Lissette Padilla Attending Provider: Lissette Padilla Primary Care Provider: Albertina Morales Hospital Course Hospital Course: This patient is a pleasant 48 yo female who present with signs and symptoms of acute cholecystitis. Her symptoms did not resolve with medical management. Patient proceeded with an uneventful laparoscopic cholecystectomy. POD # 1 the patient meet critieria for discharge home. she was given post operative care instructions. she will follow up in the surgical office in 1 -2 weeks. Home Meds and New Rx's Prescriptions: No Action modafinil 200 mg tablet 200 mg PO DAILY Mirena 20 mcg/24 hours (5 yrs) 52 mg intrauterine device 1 device IY ONCE semaglutide 1 mg/dose (4 mg/3 mL) pen injector 1 mg subcut QWEEK tolterodine [Detrol LA] 2 mg capsule,extended release 24hr 2 mg PO DAILY Qty: 90 3RF bupropion HCl [Wellbutrin XL] 300 MG tablet extended release 24 hr 300 mg PO DAILY lamotrigine [Lamictal] 100 MG tablet 100 mg PO DAILY aripiprazole [Abilify] 5 MG tablet 5 mg PO DAILY omeprazole 40 mg capsule,delayed release(DR/EC) 20 mg PO DAILY Discharge Instructions Instructions: Gallbladder Diet Stand Alone Forms: Nursing Discharge Form Referrals: Albertina Morales MD [Primary Care Provider] - 01/24/24 12:40 pm Lissette Padilla DO [OSTEOPATHIC DOCTOR] - 01/24/24 11:45 am Activity:: Activity as Tolerated Equipment/Supplies:: No Equipment Needed Diet:: Carb Counting Discharge Orders Discharge Orders: Discharge Order (Routine); Ordered 01/08/24 Ordered By: Anu Hatch Discharge Data Discharge Date/Time-TO BE ENTERED AT DEPARTURE: 01/08/24 10:16 DS: Summary Summary Time spent discussing smoking cessation with patient: 3 to 10 minutes Time Spent with Patient providing and/or coordinating discharge services: Less than 30 minutes Status at Discharge Functional status at discharge: independent ambulation Overall status at discharge: patient is back to baseline Mental Status: mental status grossly normal Speech and Movement: speech and movement normal Mood: congruent mood Affect: normal affect Quality:SDOH Health Related Social Needs: No Data to Display Exam Const General: cooperative, healthy appearing, comfortable and no acute distress Orientation: alert, awake and oriented x3 Eyes General: appearance normal, both eyes and all related structures Sclera: sclerae normal Resp Effort & Inspection: normal respiratory effort and able to speak in complete sentences Auscultation: clear to auscultation bilaterally GI Inspection: normal to inspection Palpation: soft Auscultation: normal bowel sounds Other: incisions are clean/dry and intact. no ecchumosis. appropriate postop tenderness Psych Mental Status: mental status grossly normal Speech and Movement: speech and movement normal Mood: congruent mood Affect: normal affect DS: Data Vitals/I&O Vitals and I&O: Vital Signs Temperature 98.1 F 01/08/24 01:06 Temperature Source Temporal Artery Scan 01/08/24 01:06 Pulse 80 01/08/24 01:06 Pulse Rhythm Regular 01/08/24 02:37 Pulse 77 01/07/24 15:40 Respiratory Rate 12 01/08/24 01:06 Respiratory Effort Normal, Non-Labored 01/08/24 02:37 Respiratory Depth Normal 01/08/24 02:37 Respiratory Pattern Normal 01/08/24 02:37 Blood Pressure 116/56 L 01/08/24 01:06 Blood Pressure Mean 91 01/07/24 15:40 Blood Pressure Position Sitting 01/07/24 02:24 Pulse Oximetry 96 01/08/24 01:06 Respiratory End-tidal CO2 36 01/07/24 15:40 Oxygen Delivery Method Room Air 01/08/24 01:06 Oxygen Flow Rate 0 01/08/24 01:06 Pain Level 2 01/08/24 02:02 Intake & Output 01/07/24 01/07/24 01/08/24 11:59 23:59 11:59 Intake Total 1410 / 4098.75 2688.75 / 4098.75 1088.75 / 1088.75 Output Total 250 / 1650 1400 / 1650 900 / 900 Balance 1160 / 2448.75 1288.75 / 2448.75 188.75 / 188.75 Weight 98.883 kg 98.883 kg Intake: IV 1410 / 3378.75 1968.75 / 3378.75 1088.75 / 1088.75 Oral 720 / 720 Output: Urine 250 / 1650 1400 / 1650 900 / 900 Other: Urine Color Yellow Yellow Pale Urine Appearance Clear Clear Clear Urine Odor Normal Normal None Emesis Description None Voiding Methods Toilet Toilet Toilet Data Completed and Pending Labs on day of discharge: Labs from last 24 hours 01/08/24 01/07/24 06:35 08:55 WBC 9.21 8.79 RBC 4.34 4.27 Hgb 13.0 12.7 Hct 39.5 37.9 MCV 91 89 MCH 30.0 29.7 MCHC 32.9 33.5 RDW 14.7 H 14.4 Plt Count 270 262 MPV 9.5 9.2 Immature Gran % 0.3 Neutrophils % 63.3 Lymphocytes % 27.6 Monocytes % 7.1 Eosinophils % 1.1 Basophils % 0.6 Nucleated RBC % 0.0 Absolute Neutrophils 5.56 Absolute Lymphocytes 2.43 Absolute Monocytes 0.62 Absolute Eosinophils 0.10 Absolute Basophils 0.05 Sodium 141 143 Potassium 3.6 4.0 Chloride 105 107 Carbon Dioxide 26.5 25.3 Anion Gap 9.5 10.7 BUN 6 L 9 Creatinine 0.9 0.9 Est GFR (CKD-EPI 2020) 79.35 79.35 Glucose 135 H 97 Calcium 8.3 L 8.4 L Total Bilirubin 0.34 0.52 AST 56 H 264 H ALT 107 H 153 H Alkaline Phosphatase 98 103 Total Protein 6.3 L 6.5 Albumin 3.1 L 3.4 Lipase 39 PFSH All Active Problems (Updated 01/09/24 @ 00:09 by VICKI HICKS) Cubital tunnel syndrome on left (Acute) Dysuria (Acute) Snoring (Acute) Gastroesophageal reflux disease (Chronic) Globus sensation (Acute) OAB (overactive bladder) (Acute) Fatigue (Acute) Depression (Chronic) Anxiety (Chronic) IUD surveillance (Acute 09/24/15) LOT [id number] Medical History Melanocytic nevus Paresthesia of left upper extremity History of prediabetes Posterior rhinorrhea Obesity Hyperlipidemia Contusion of chest Snoring Lack of energy Lateral epicondylitis Chronic tension headache Insomnia Onset 03/28/2018 Recurrent major depressive episodes, mild Onset 12/25/2017 Surgical History No significant past surgical history Family History Maternal Aunt Breast cancer in female Father Diabetes Essential hypertension Parkinsons disease Hyperlipidemia Social History Smoking/Tobacco Use Status: Never Second Hand Exposure: No Smoking risk assessment performed?: Yes Alcohol Intake: current Alcohol Intake frequency: holidays/special occasions only Details: BEER 1-2 TIMES PER WEEK Drug use: Never Substance use type: does not use Household members: spouse and children Housing: house 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 [employer] Pets and animals: Yes Pets and animals: cat(s), dog(s) and other Details: Rabbit Sexually active: Yes Current gender identity: female What type of physical activity do you participate in: none Seatbelt use: always Helmet use: Yes Do you feel safe at home: Yes Do you feel safe in your relationship?: Yes Female Reproductive History Menstrual control method: progestin IUCD History History 2 Para 2 Hx # Term Pregnancies Multiple births Hx # Pregnancies Ectopic pregnancies AB induced Hx Number of Living Children AB spontaneous Time Spent with Patient Time Spent with Patient: <45 minutes Time was spent: preparing to see the patient(eg.review tests), obtaining and/or reviewing separately otained hiistory, ordering medications,tests, procedures, referring, communicating with other health day care center director, indepentently interpreting results and counseling the patient
[2024-01-08] MEDS: Normal Saline Flush 10 ML SYR IVP (08:04)
[2024-01-08 08:21] VITALS: BP 111/60; PULSE 78; RESP 15; TEMP 36.3; O2SAT 95
--- NOTE | 2024-01-08 08:22 | CMDISCH_ITS ---
Date of service: 01/08/24 Time of Service: 08:22 LACE Index Scoring Tool Questions: Length of Stay (in days): 1 Was the patient admitted via the E.D.?: Yes E.D. Visits: 1 Answers: Total Score: 5 Risk of Readmission: Low Risk Care Management Discharge Plan Reason for Hospitalization: acute cholecystitis s/p lap cholecystectomy Discharge Plan: Mena will be discharged home today with no new services. She will remain out of work for the rest of the week to rest and heal up. Return to Work letter provided per Dr. Hatch request. She will follow up with her surgeon on January 23 and continue per plan of care. Patient/Family Education Needs: Review of discharge instructions, activity limitations, f/u plan and discuss Ask me 3 SDOH Health Related Social Needs: 2 No Data to Display
== END 2024-01-08 10:16 | disposition home or self-care (01) | DRG 418 ==
LOC: ER 05:39 → MS 06:28
PROVIDERS: Surgery; Admitting Provider Surgery; Emergency Provider Student in an Organized Health Care Education/Training Program; PCP Physician Assistant; Visit Provider Surgery
PROC: 0FT44ZZ Resection of Gallbladder, Percutaneous Endoscopic Approach (ICD-10-PCS; CPT 47562; principal; 2024-01-07 11:00)
DX: K80.12 Calculus of gallbladder with acute and chronic cholecystitis without obstruction (principal); F33.0 Major depressive disorder, recurrent, mild; K21.9 Gastro-esophageal reflux disease without esophagitis; N32.81 Overactive bladder; F41.9 Anxiety disorder, unspecified; R06.83 Snoring; R73.03 Prediabetes; E66.9 Obesity, unspecified; Z68.35 Body mass index [BMI] 35.0-35.9, adult; G47.00 Insomnia, unspecified; G56.22 Lesion of ulnar nerve, left upper limb
CPT/HCPCS: 47562; 00123; 36415; 80053; 83690; 85027; 96361; 96365; 96375; 99285; 74177; 83605; 84703; 85025; 88304; J0131; J0665; J0690; J0696; J1100; J1170; J1836; J1885; J2001; J2250; J2270; J2405; J2704; J3010; J3490

== ENCOUNTER 2024-03-26 10:38 | Outpatient (CLI) | payer OTHER, SELFPAY ==
--- NOTE | 2024-03-26 09:15 | DI.MAMMO_ITS ---
Exam(s) MAMMO SCREENING EXAM: MAMMO SCREENING CLINICAL HISTORY: Z12.39 screening TECHNIQUE: Mammograms were interpreted according to the usual protocol including computer analysis w [employer] CAD system, tomosynthesis and C-view imaging. COMPARISON: MG Combo Bilateral from 07/30/2018 MG Combo Bilateral from 02/27/2020 MG Combo Bilateral from 03/12/2023 FINDINGS: The breasts are composed of scattered fibroglandular densities, Breast Density category B. No suspicious masses or suspicious microcalcifications are seen. No skin thickening or abnormal axillary lymph nodes are seen. There has been no significant change from prior exams. IMPRESSION: BI-RADS Category 1, Negative mammogram Yearly screening mammography is recommended. Breast Density - Category B, scattered fibroglandular densities. A negative radiographic report should not delay biopsy if a dominant or clinically suspicious mass is present. Up to ten percent of cancers are not identified on mammography. A negative report may reinforce clinical impression. Adenosis and dense breasts may obscure an underlying neoplasm. False positive reports average 6 to 10%. Patient will receive a letter notifying them of these results.
== END 2024-03-26 10:58 ==
LOC: DI 10:39
PROVIDERS: PCP Physician Assistant; Visit Provider Nurse Practitioner Women's Health
DX: Z12.31 Encounter for screening mammogram for malignant neoplasm of breast (principal)
CPT/HCPCS: 77063; 77067

== ENCOUNTER 2024-04-01 02:28 | Outpatient (CLI) | payer OTHER, SELFPAY ==
[2024-04-01 13:15] LABS: Hemoglobin A1C 5.7 % (<5.7)
[2024-04-01 14:11] LABS: ALT 35 U/L (14-59); AST 22 U/L (15-37); Albumin 4.2 g/dL (3.4-5.0); Alkaline Phosphatase 113 U/L (46-116); Anion Gap 11.7 mmol/L (3-11); BUN 16 mg/dL (7-18); Bilirubin, Total 0.36 mg/dL (0.2-1.0); CO2 26.3 mmol/L (21.0-32.0); CREATININE 0.9 mg/dL (0.55-1.02); Calcium 9.6 mg/dL (8.5-10.1); Calculated LDL 201 mg/dL (<100); Chloride 104 mmol/L (98-107); Cholesterol 294 mg/dL (<200); Estimated GFR 79.35 (mL/min/1.73m2); Glucose 87 mg/dL (74-106); HDL Cholesterol 66 mg/dL (40-60); Potassium 4.4 mmol/L (3.5-5.1); Sodium 142 mmol/L (136-145); Total Protein 7.7 g/dL (6.4-8.2); Triglyceride 138 mg/dL (<150)
== END 2024-04-01 02:29 | disposition home or self-care (01) ==
LOC: LBO 02:28
PROVIDERS: PCP Physician Assistant; Visit Provider Physician Assistant
DX: R73.03 Prediabetes (principal); E78.5 Hyperlipidemia, unspecified
CPT/HCPCS: 36415; 80053; 80061; 83036

== ENCOUNTER 2024-04-22 02:38 | Outpatient (CLI) | payer OTHER, SELFPAY ==
[2024-04-22 08:28] LABS: ALT 35 U/L (14-59); AST 24 U/L (15-37); Albumin 3.9 g/dL (3.4-5.0); Alkaline Phosphatase 98 U/L (46-116); Anion Gap 9.5 mmol/L (3-11); BUN 16 mg/dL (7-18); Bilirubin, Total 0.29 mg/dL (0.2-1.0); CO2 25.5 mmol/L (21.0-32.0); CREATININE 0.9 mg/dL (0.55-1.02); Calcium 9.1 mg/dL (8.5-10.1); Chloride 101 mmol/L (98-107); Estimated GFR 79.35 (mL/min/1.73m2); Glucose 107 mg/dL (74-106); Sodium 136 mmol/L (136-145); Total Protein 7.5 g/dL (6.4-8.2)
== END 2024-04-22 02:39 | disposition home or self-care (01) ==
PROVIDERS: Emergency Medicine; Visit Provider Physician Assistant
DX: E66.9 Obesity, unspecified (principal); R53.83 Other fatigue; R63.5 Abnormal weight gain
CPT/HCPCS: 36415; 80053; 82533; 83001; 84443

== ENCOUNTER 2024-09-19 00:48 | Outpatient (CLI) | payer OTHER, SELFPAY ==
[2024-09-19 08:21] LABS: Hemoglobin A1C 5.4 % (<5.7)
[2024-09-19 08:27] LABS: Calculated LDL 183 mg/dL (<100); Cholesterol 263 mg/dL (<200); HDL Cholesterol 60 mg/dL (>or=50); Triglyceride 104 mg/dL (<150)
== END 2024-09-19 00:49 | disposition home or self-care (01) ==
PROVIDERS: Visit Provider Physician Assistant
DX: E78.5 Hyperlipidemia, unspecified (principal); R73.03 Prediabetes
CPT/HCPCS: 36415; 80061; 83036

== ENCOUNTER 2025-01-21 10:45 | Outpatient (CLI) | payer OTHER, SELFPAY ==
[2025-01-21 11:07] LABS: Calculated LDL 188 mg/dL (<100); Cholesterol 262 mg/dL (<200); HDL Cholesterol 54 mg/dL (>or=50); Triglyceride 100 mg/dL (<150)
== END 2025-01-21 10:46 | disposition home or self-care (01) ==
LOC: LBO 10:45
PROVIDERS: PCP Physician Assistant; Visit Provider Physician Assistant
DX: E78.5 Hyperlipidemia, unspecified (principal)
CPT/HCPCS: 36415; 80061

== ENCOUNTER → 2025-05-04 15:42 | Outpatient (CLI) | payer OTHER, SELFPAY ==
--- NOTE | 2025-05-04 16:30 | DI.CT_ITS ---
Exam(s) CT NECK W EXAM: CT NECK W INDICATION: Foreign body sensation in throat, R09.A2. COMPARISON: CT CT ABDOMEN PELVIS W from 01/07/2024 TECHNIQUE: FINDINGS: VISUALIZED PARANASAL SINUSES: Unremarkable. NASOPHARYNX: Unremarkable ORODENTAL: Unremarkable. OROPHARYNX: Unremarkable. No masses evident. HYPOPHARYNX: There is asymmetric density in the right vallecula measuring 8 by 9 mm. Left electrolyte unremarkable. Free edge of the epiglottis appears intact. VOCAL CORDS: Unremarkable. No masses evident. Subglottic airway appears unremarkable. THYROID GLAND: Unremarkable. Normal size and no obvious nodules. SALIVARY GLANDS: Unremarkable. No significant findings in the parotid and submandibular glands. LYMPH NODES: There are few bilateral enhance sing upper normal sized lymph nodes in the neck. No gross lymphadenopathy evident in the neck nor in the supraclavicular regions. OTHER: There is no radiopaque foreign body. VISUALIZED LUNG APICES: No significant findings. IMPRESSION: 1. There is asymmetric fullness in the right vallecula. Comment ENT consultation for direct visualization/endoscopy. RADIATION DOSE DELIVERED: 346.77mGy.cm Total DLP DATA REPOSITORY: All CT scans at this facility are submitted to the National Radiology Data Registry (NRDR) Dose Index Registry (DIR) with the [employer] (ACR). RADIATION OPTIMIZATION: All CT scans at this facility use at least one of these dose optimization techniques: automated exposure control; mA and/or kV adjustment per patient size (includes targeted exams where dose is matched to clinical indication); or iterative reconstruction.
[2025-05-04] MEDS: Normal Saline Flush 10 ML SYR IVP (16:40)
[2025-05-04] MEDS: Omnipaque 350 MG/ML 100 ML BTL IJ (16:40)
[2025-05-04] MEDS: Normal Saline - Diluent 50 ML VIAL IJ (16:40)
== END ==
LOC: DI 15:42
PROVIDERS: PCP Physician Assistant; Visit Provider Physician Assistant
DX: R09.A2 Foreign body sensation, throat (principal)
CPT/HCPCS: 70491; J3490